=== PATIENT | female | born 1955 | race Caucasian/White ===

== ENCOUNTER 2018-03-03 14:36 | Inpatient (IN) ==
--- NOTE | 2018-03-03 14:58 | Emergency Department Note ---
ED Disposition Clinical Impression: Sinus bradycardia, Medication side effect, COPD (chronic obstructive pulmonary disease), Diabetes mellitus, Hypertension, COPD exacerbation Disposition: Still a Patient Condition on Discharge: Fair Referrals: Ricky Slaughter MD [Primary Care Provider] - - Critical Care Critical Care Time: No Attestation: On 03/03/18, the high probability of a clinically significant, sudden or life threatening deterioration of the following system(s) required my full and direct attention, intervention and personal management. The time I documented below is in addition to time spent performing reported procedures but includes the following listed in this critical care notation. Medical Decision Making - Ravinder Inquiry Pt receiving controlled substance: No Ravinder was queried for this patient: No Vital Signs: 03/03/18 14:54 03/03/18 14:55 03/03/18 15:33 Temperature 98.4 F Temperature Source Oral Pulse Rate [Left Radial] 41 L 39 L Respiratory Rate 26 H 24 Blood Pressure [Right Arm] 146/66 H 106/56 L Blood Pressure Mean [Right Arm] 92 72 Blood Pressure Source [Right Arm] Automatic Cuff Automatic Cuff Blood Pressure Position [Right Arm] Sitting Sitting 02 Sat by Pulse Oximetry 81 L 90 L 93 L Oxygen Delivery Method Room Air Nasal Cannula Nasal Cannula Oxygen Flow Rate (LPM) 5 5 - Lab Data Lab Results 03/03/18 14:55: Specimen Source Right radial, O2 % 42%, ABG pH 7.36, ABG pCO2 46.8 H, ABG pO2 63.3 L, ABG HCO3 25.9, ABG Total CO2 27.3 H, ABG O2 Saturation 92, ABG Base Excess 0.5, Sudhakar Test Acceptable 03/03/18 15:16: D-Dimer 101 03/03/18 15:24: WBC 10.8, RBC 4.79, Hgb 14.3, Hct 44.4, MCV 92.6, MCH 29.9, MCHC 32.3, RDW 14.3, Plt Count 227, MPV 7.4, Neut % (Auto) 78.1, Lymph % (Auto) 16.9, Nance % (Auto) 4.1, Eos % (Auto) 0.8, Baso % (Auto) 0.2, Neut # (Auto) 8.4 H, Lymph # (Auto) 1.8, Nance # (Auto) 0.4, Eos # (Auto) 0.1, Baso # (Auto) 0.0 03/03/18 15:24: Sodium 143, Potassium 3.8, Chloride 106, Carbon Dioxide 28, Anion Gap 12.8, BUN 15, Creatinine 1.17 H, Estimated Creat Clear 90, Estimated GFR 47 L, Est GFR ( Amer) 57 L, Glucose 189 H, Calcium 8.8, Total Bilirubin 0.2, AST 11 L, ALT 22, Alkaline Phosphatase 101, Troponin I < 0.02, Total Protein 8.0, Albumin 3.6, Globulin 4.4 H, Albumin/Globulin Ratio 0.8 L 03/03/18 15:24: Lactate 1.8 03/03/18 15:24: B-Natriuretic Peptide 103 H 03/03/18 15:24: Magnesium 2.0 Result diagrams: 03/03/18 15:24 03/03/18 15:24 Orders (Tests/Meds): ED MEDICATIONS Generic Name Dose Route Start Last Admin Trade Name Freq PRN Reason Stop Dose Admin Ceftriaxone Sodium 1 gm/ 50 mls @ 100 mls/hr 03/03/18 16:00 03/03/18 16:21 Sodium Chloride IV 03/17/18 15:59 100 mls/hr Q24H ALMA Administration Protocol Discontinued Medications Generic Name Dose Route Start Last Admin Trade Name Freq PRN Reason Stop Dose Admin Albuterol/Ipratropium 3 ml 03/03/18 15:46 Duoneb 3ml Neb IH 03/03/18 15:47 ONCE ONE Famotidine 20 mg 03/03/18 15:46 03/03/18 16:21 Pepcid 20mg/2ml Vial IV 03/03/18 15:47 20 mg ONCE ONE Administration Methylprednisolone Sodium Succinate 125 mg 03/03/18 15:46 03/03/18 16:21 Solu-Medrol 125mg/2ml Vial IV 03/03/18 15:47 125 mg ONCE ONE Administration ORDERS Category Date Time Status Chest XR -- portable [XR chest portable] Stat Exams 03/03/18 14:54 Taken Blood Culture Stat Micro 03/03/18 15:24 Ordered - Radiology Data #1 Image Reviewed: Yes I reviewed the patient's radiology image - ECG Data Tracing #1 40/min sinus bradycardia low voltage nonspecific ST and T wave changes no acute findings. ECG initial impression date: 03/03/18 ECG initial impression time: 15:05 Medical Decision Narrative: Patient came stable on 6 L nasal cannula started IV steroids antibiotics and erica nebs later on was able to diminish it to 4 L nasal cannula contacted Dr. Dr. Slaughter for admission. Resp/SOB HPI - General Stated Complaint: vomiting,congestion,SOA Time Seen by Provider: 03/03/18 14:55 Mode of Arrival: Ambulatory - History of Present Illness 62 years old white female smoker with history of COPD, hypertension, CVA and diabetes mellitus on Glucophage.. 3 days ago she developed upper respiratory tract infection sinus congestion headache and cough. She progressively got short of breath upon arrival to her son's she was found to be hypoxic and bradycardic. She was brought to the ED and her oxygen saturation was 84% and her heart rate was 48/min.. He denies having chest pain palpitations hemoptysis hematemesis coffee-ground emesis melanotic stool or bleeding per rectum. She denies having fever chills productive sputum dysuria hematuria or frequency. The patient had similar episode 2 years ago and was contributed to COPD exacerbation. I reviewed her medication and she is on beta-blockers calcium channel blockers and alpha blockers in addition to terazosin and diuretics. MD Complaint: shortness of breath Onset (ago): day(s) (Progressively for the last 3 days.) Severity: moderate Consistency/Duration: constant Relieving factors: oxygen, rest Exacerbating factors: lying flat, exertion Associated symptoms: cough, other (Nausea without vomiting. ) Treatment prior to arrival: other (Pulse ox by the son's girlfriend. ) - Related Data Home oxygen amount: none Home Medications Medication Instructions Recorded Confirmed Enalapril Maleate 10 mg PO BID 03/03/18 03/03/18 Fluoxetine HCl 20 mg PO DAILY 03/03/18 03/03/18 Furosemide [Lasix 40mg tab] 40 mg PO DAILY 03/03/18 03/03/18 Hydralazine HCl [Hydralazine HCl 25 mg PO BID 03/03/18 03/03/18 25mg Tablet] Metoprolol Tartrate [Lopressor 50 mg PO BID 03/03/18 03/03/18 50mg tablet] Potassium Chloride [Klor-Con 10mEq 10 meq PO DAILY 03/03/18 03/03/18 tab] Terazosin HCl 10 mg PO HS 03/03/18 03/03/18 Trazodone HCl 50 mg PO HS 03/03/18 03/03/18 cloNIDine HCl [cloNIDine 0.2mg 0.2 mg PO BID 03/03/18 03/03/18 Tablet] dilTIAZem HCl [Diltiazem 90mg 12Hr 90 mg PO BID 03/03/18 03/03/18 ER Cap] Allergies Allergy/AdvReac Type Severity Reaction Status Date / Time No Known Allergies Allergy Verified 03/03/18 15:29 [facility] History I have reviewed the patient's past medical history: Yes ROS Obtained: Yes All systems reviewed & no additional complaints Physical Exam - General General appearance: alert, in no apparent distress, obese - Head Head exam: atraumatic, normocephalic, normal inspection - Eye Eye exam: Present: normal appearance, PERRL, EOMI. Absent: scleral icterus, nystagmus - ENT ENT exam: Present: normal exam, normal oropharynx, mucous membranes moist, TM's normal bilaterally, normal external ear exam - Neck Neck exam: Present: normal inspection, full ROM, trachea midline, other (No JVD. ). Absent: tenderness, meningismus, lymphadenopathy - Chest Chest inspection: Present: normal inspection, symmetric chest wall rise. Absent: tenderness - Respiratory Respiratory exam: Present: normal lung sounds bilaterally. Absent: respiratory distress, wheezes - Cardiovascular Cardiovascular exam: Present: regular rate, bradycardia, normal heart sounds. Absent: JVD - Abdominal Exam Abdominal exam: Present: soft, normal bowel sounds. Absent: distention, tenderness, guarding, rebound, rigidity - External exam: Present: normal external exam - Extremities Exam Extremities exam: Present: normal inspection, full ROM, normal capillary refill. Absent: calf tenderness - Back Exam Back exam: Present: normal inspection. Absent: tenderness, CVA tenderness (R), CVA tenderness (L), paraspinal tenderness, vertebral tenderness - Neurological Exam Neurological exam: Present: alert, oriented X3, CN II-XII intact, motor sensory deficit, reflexes normal - Psychiatric Psychiatric exam: Present: normal affect, normal mood - Skin Skin exam: Present: warm, dry, intact, normal color - Lymphatic Lymphatic Findings: no adenopathy
[2018-03-03 15:33] LABS: Basophils % 0.2 % (0.1-2.0); Eosinophils # 0.1 K/mm3 (0.0-0.4); Eosinophils % 0.8 % (0.1-12.0); Hematocrit 44.4 % (37.0-47.0); Hemoglobin 14.3 g/dL (12.2-16.2); Lymphocytes # 1.8 K/mm3 (0.7-4.5); Lymphocytes % 16.9 % (10-50); Mean Corpuscular HGB Conc 32.3 g/dL (31.8-35.4); Mean Corpuscular Hemoglobin 29.9 pg (27.0-31.2); Mean Corpuscular Volume 92.6 fl (81-99); Mean Platelet Volume 7.4 fl (7.4-10.4); Monocytes # 0.4 K/mm3 (0.1-1.0); Monocytes % 4.1 % (1.7-9.3); Neutrophils # 8.4 K/mm3 (1.8-7.8); Neutrophils % 78.1 % (37.0-80.0); Platelet Count 227 K/mm3 (142-424); Red Blood Count 4.79 M/mm3 (4.20-5.40); Red Cell Distribution Width 14.3 % (11.5-17.5); White Blood Count 10.8 K/mm3 (4.8-10.8)
[2018-03-03 15:33] LABS: ABG Base Excess 0.5 mmol/L (-2.4-2.3); ABG HCO3 25.9 mmhg (22.0-26.0); ABG Oxygen Saturation 92 % (90-100); ABG PCO2 46.8 mmhg (35.0-45.0); ABG PH 7.36 mmol/L (7.35-7.45); ABG PO2 63.3 mmhg (80-100); ABG TCO2 27.3 mmhg (23-27)
[2018-03-03 15:36] LABS: Allen's Test Acceptable
[2018-03-03 15:47] LABS: Alanine Aminotransferase 22 U/L (12-78); Albumin Level 3.6 gm/dL (3.4-5.0); Albumin/Globulin Ratio 0.8 (1.1-1.8); Alkaline Phosphatase 101 U/L (46-116); Anion Gap 12.8 mEq/L (5-15); Aspartate Amino Transferase 11 U/L (15-37); Bilirubin,Total 0.2 mg/dL (0.2-1.0); Blood Urea Nitrogen 15 mg/dL (7-18); Calcium 8.8 mg/dL (8.5-10.1); Carbon Dioxide 28 mmol/L (21.0-32.0); Chloride 106 mmol/L (98-107); Globulin 4.4 gm/dl (1.3-3.2); Glucose 189 mg/dL (74-106); Potassium 3.8 mmoL/L (3.5-5.1); Sodium 143 mmol/L (136-145)
[2018-03-04 05:53] LABS: Basophils % 0.1 % (0.1-2.0); Eosinophils % 0.3 % (0.1-12.0); Hematocrit 43.5 % (37.0-47.0); Hemoglobin 13.7 g/dL (12.2-16.2); Lymphocytes # 0.8 K/mm3 (0.7-4.5); Lymphocytes % 12.4 % (10-50); Mean Corpuscular HGB Conc 31.6 g/dL (31.8-35.4); Mean Corpuscular Hemoglobin 29.6 pg (27.0-31.2); Mean Corpuscular Volume 93.7 fl (81-99); Mean Platelet Volume 7.6 fl (7.4-10.4); Monocytes # 0.1 K/mm3 (0.1-1.0); Monocytes % 1.8 % (1.7-9.3); Neutrophils # 5.2 K/mm3 (1.8-7.8); Neutrophils % 85.4 % (37.0-80.0); Platelet Count 232 K/mm3 (142-424); Red Blood Count 4.64 M/mm3 (4.20-5.40); Red Cell Distribution Width 14.2 % (11.5-17.5); White Blood Count 6.1 K/mm3 (4.8-10.8)
[2018-03-04 06:04] LABS: Anion Gap 12.3 mEq/L (5-15); Potassium 4.3 mmoL/L (3.5-5.1)
[2018-03-04 08:23] LABS: Lymphocytes % 10 % (10-50); Monocytes % 2 % (2-9); Neutrophils % 88 % (42-76); Total Cells Counted 100
--- NOTE | 2018-03-04 08:24 | Pharmacy Consult Notes ---
[facility] Pharmacy VTE Monitoring - Patient Demographics Admission date: 03/03/18 Report Date: 03/04/18 Time: 08:24 Allergies/Adverse Reactions: Patient Allergies No Known Allergies Allergy (Verified 03/03/18 15:29) Height: 1.68 m Weight: 114.844 kg Patient Problems: Current Active Problems Sinus bradycardia (Acute) Medication side effect (Acute) COPD (chronic obstructive pulmonary disease) (Acute) Diabetes mellitus (Acute) Hypertension (Acute) COPD exacerbation (Acute) - VTE Risk Labs: VTE Related Lab Results Hgb 13.7 g/dL (12.2-16.2) 03/04/18 05:28 Hct 43.5 % (37.0-47.0) 03/04/18 05:28 Plt Count 232 K/mm3 (142-424) 03/04/18 05:28 BUN 15 mg/dL (7-18) 03/04/18 05:28 Creatinine 1.31 mg/dL (0.55-1.02) H 03/04/18 05:28 Estimated Creat Clear 81 mL/min (50-200) 03/04/18 05:28 Was VTE Risk Assessment Performed: Yes VTE Risk Level: Very Low Risk - Prophylaxis VTE Prophylaxis Ordered?: Yes Types of VTE Prophylaxis: TEDS Knee High Location of Applied Device: Bilateral Lower Extremeties - VTE Diagnosis Confirmed Treatment or plan recommended: Continue Current Treatment
--- NOTE | 2018-03-04 09:36 | History & Physical Report ---
*Admission Date: 03/03/18 <Lindsay Dominguez 03/04/18 09:46> *Chief complaint: COPD exacerbation, Bradycardia <Lindsay Dominguez 03/04/18 09:46> *History of present illness: Further to above history, she states she started with vomiting and diarrhea yesterday and vomiting last night after admission to the floor but states her nausea is better and she was able to eat her breakfast this morning. SHe is not clear on her home meds and we are awaiting her son's arrival with her prescription bottles for clarification <Ricky Slaughter - 03/04/18 14:52> Ms. Fang is a 62yo WF with history of COPD, HTN, CVA, DM, and depression. She presented to [facility] ED yesterday after three days of progressive upper respiratory tract infection symptoms at home. Her son reportedly brought her to the ED where she was found to be hypoxic with O2 sat of 84% and bradycardic with heart rate of 48bpm. Her CXR was negative. She denies any chest pain or associated GI or symptoms. She had a similar episode two years ago which was contributed to COPD. At this time, she is sitting up on the side of the bed with family present. She denies any pain and notes that she is feeling better that she had. She reports tolerating breakfast well with good appetite. She continues with SOB with O2 in place per NC. <Lindsay Dominguez 03/04/18 09:46> [facility] History Medical History: Reports:: Chronic Obstructive Pulmonary Disease (COPD), Cerebrovascular Accident, Depression, Diabetes Mellitus Type 2, Hyperlipidemia, Hypertension <AlbertoLindsay 03/04/18 09:46> Other Surgeries: Yes: Appendectomy, Tubal Ligation <AlbertoLindsay 03/04/18 09:46> - *Social History Educational Level: Completed GED/General Educational Development <Lindsay Dominguez 03/04/18 09:46> Smoking Status: Current every day smoker <Lindsay Dominguez 03/04/18 09:46> Tobacco Type: cigarettes <AlbertoLindsay 03/04/18 09:46> # Packs/Day (cigarettes): 1 <Lindsay Dominguez 03/04/18 09:46> Alcohol Intake: never <Lindsay Dominguez 03/04/18 09:46> Occupational Status: disabled <Lindsay Dominguez 03/04/18 09:46> Housing: apartment <Lindsay Dominguez 03/04/18 09:46> Household Members: children <Lindsay Dominguez 03/04/18 09:46> - Psychiatric History Expresses thoughts of harming self/others: None <Lindsay Dominguez 03/04/18 09:46> Suicide Plan Description: No Plan <Lindsay Dominguez 03/04/18 09:46> *Family Hx:: Cancer, Diabetes, Heart Attack <Lindsay Dominguez 03/04/18 09:46> Review of Systems - Constitutional Reports fatigue, Reports fever(s), Reports headache(s), Reports weakness <Lindsay Dominguez 03/04/18 09:46> - ENT Reports headache(s), Reports nasal congestion, Reports post nasal drip, Reports sinus pressure, Reports sore throat, Reports dizziness <Lindsay Dominguez 03/04/18 09:46> - *Cardiovascular Reports shortness of breath, Reports lightheadedness, Reports shortness of breath when lying down, Denies chest pain <Lindsay Dominguez 03/04/18 09:46> - *Respiratory Reports chest congestion, Reports cough, Reports shortness of breath, Reports shortness of breath with activity <Lindsay Dominguez 03/04/18 09:46> - *Gastrointestinal Denies abdominal pain, Denies loose stools, Denies nausea, Denies vomiting <Lindsay Dominguez 03/04/18 09:46> - *Genitourinary Denies difficulty urinating <Lindsay Dominguez 03/04/18 09:46> - *Neurologic Reports dizziness, Reports weakness <Lindsay Dominguez 03/04/18 09:46> - Hematologic/Lymphatic Reports enlarged lymph nodes <Lindsay Dominguez 03/04/18 09:46> Meds Home Medications Medication Instructions Recorded Confirmed Type Enalapril Maleate 20 mg PO BID 03/03/18 03/03/18 History Fluoxetine HCl 20 mg PO DAILY 03/03/18 03/03/18 History Furosemide [Lasix 40mg tab] 40 mg PO DAILY 03/03/18 03/03/18 History Hydralazine HCl [Hydralazine HCl 25 mg PO BID 03/03/18 03/03/18 History 25mg Tablet] Metformin HCl 1,000 mg PO BID 03/03/18 03/03/18 History Metoprolol Tartrate [Lopressor 50 mg PO BID 03/03/18 03/03/18 History 50mg tablet] Potassium Chloride [Klor-Con 10mEq 10 meq PO DAILY 03/03/18 03/03/18 History tab] Terazosin HCl 10 mg PO HS 03/03/18 03/03/18 History Trazodone HCl 50 mg PO HS 03/03/18 03/03/18 History cloNIDine HCl [cloNIDine 0.2mg 0.2 mg PO BID 03/03/18 03/03/18 History Tablet] dilTIAZem HCl [Diltiazem 90mg 12Hr 90 mg PO BID 03/03/18 03/03/18 History ER Cap] <Ricky Slaughter - 03/04/18 14:52> Allergies Allergy/AdvReac Type Severity Reaction Status Date / Time No Known Allergies Allergy Verified 03/03/18 15:29 <Ricky Slaughter - 03/04/18 14:52> Exam Vital signs and Labs for Last 24 Hours: Temp Pulse Resp BP Pulse Ox 98.2 F 72 20 185/91 H 93 L 03/04/18 08:00 03/04/18 13:48 03/04/18 08:00 03/04/18 08:00 03/04/18 13:48 Laboratory Results - last 24 hr 03/03/18 14:55: Specimen Source Right radial, O2 % 42%, ABG pH 7.36, ABG pCO2 46.8 H, ABG pO2 63.3 L, ABG HCO3 25.9, ABG Total CO2 27.3 H, ABG O2 Saturation 92, ABG Base Excess 0.5, Sudhakar Test Acceptable 03/03/18 15:16: D-Dimer 101 03/03/18 15:24: WBC 10.8, RBC 4.79, Hgb 14.3, Hct 44.4, MCV 92.6, MCH 29.9, MCHC 32.3, RDW 14.3, Plt Count 227, MPV 7.4, Neut % (Auto) 78.1, Lymph % (Auto) 16.9, Mccormick % (Auto) 4.1, Eos % (Auto) 0.8, Baso % (Auto) 0.2, Neut # (Auto) 8.4 H, Lymph # (Auto) 1.8, Mccormick # (Auto) 0.4, Eos # (Auto) 0.1, Baso # (Auto) 0.0 03/03/18 15:24: Sodium 143, Potassium 3.8, Chloride 106, Carbon Dioxide 28, Anion Gap 12.8, BUN 15, Creatinine 1.17 H, Estimated Creat Clear 90, Estimated GFR 47 L, Est GFR ( Amer) 57 L, Glucose 189 H, Calcium 8.8, Total Bilirubin 0.2, AST 11 L, ALT 22, Alkaline Phosphatase 101, Troponin I < 0.02, Total Protein 8.0, Albumin 3.6, Globulin 4.4 H, Albumin/Globulin Ratio 0.8 L 03/03/18 15:24: Lactate 1.8 03/03/18 15:24: B-Natriuretic Peptide 103 H 03/03/18 15:24: Magnesium 2.0 03/03/18 19:35: Troponin I < 0.02 03/04/18 01:35: Troponin I < 0.02 03/04/18 05:28: WBC 6.1 D, RBC 4.64, Hgb 13.7, Hct 43.5, MCV 93.7, MCH 29.6, MCHC 31.6 L, RDW 14.2, Plt Count 232, MPV 7.6, Neut % (Auto) 85.4 H, Lymph % (Auto) 12.4, Mccormick % (Auto) 1.8, Eos % (Auto) 0.3, Baso % (Auto) 0.1, Neut # (Auto) 5.2, Lymph # (Auto) 0.8, Mccormick # (Auto) 0.1, Eos # (Auto) 0.0, Baso # (Auto) 0.0, Total Counted 100, Neutrophils % (Manual) 88 H, Lymphocytes % (Manual) 10, Monocytes % (Manual) 2, Platelet Estimate Normal 03/04/18 05:28: Sodium 142, Potassium 4.3, Chloride 106, Carbon Dioxide 28, Anion Gap 12.3, BUN 15, Creatinine 1.31 H, Estimated Creat Clear 81, Estimated GFR 41 L, Est GFR ( Amer) 50 L, Glucose 258 H D, Calcium 9.0 <Ricky Slaughter - 03/04/18 14:52> Temp Pulse Resp BP Pulse Ox 98.2 F 80 20 185/91 H 92 L 03/04/18 08:00 03/04/18 08:00 03/04/18 08:00 03/04/18 08:00 03/04/18 08:00 Laboratory Results - last 24 hr 03/03/18 14:55: Specimen Source Right radial, O2 % 42%, ABG pH 7.36, ABG pCO2 46.8 H, ABG pO2 63.3 L, ABG HCO3 25.9, ABG Total CO2 27.3 H, ABG O2 Saturation 92, ABG Base Excess 0.5, Sudhakar Test Acceptable 03/03/18 15:16: D-Dimer 101 03/03/18 15:24: WBC 10.8, RBC 4.79, Hgb 14.3, Hct 44.4, MCV 92.6, MCH 29.9, MCHC 32.3, RDW 14.3, Plt Count 227, MPV 7.4, Neut % (Auto) 78.1, Lymph % (Auto) 16.9, Mccormick % (Auto) 4.1, Eos % (Auto) 0.8, Baso % (Auto) 0.2, Neut # (Auto) 8.4 H, Lymph # (Auto) 1.8, Mccormick # (Auto) 0.4, Eos # (Auto) 0.1, Baso # (Auto) 0.0 03/03/18 15:24: Sodium 143, Potassium 3.8, Chloride 106, Carbon Dioxide 28, Anion Gap 12.8, BUN 15, Creatinine 1.17 H, Estimated Creat Clear 90, Estimated GFR 47 L, Est GFR ( Amer) 57 L, Glucose 189 H, Calcium 8.8, Total Bilirubin 0.2, AST 11 L, ALT 22, Alkaline Phosphatase 101, Troponin I < 0.02, Total Protein 8.0, Albumin 3.6, Globulin 4.4 H, Albumin/Globulin Ratio 0.8 L 03/03/18 15:24: Lactate 1.8 03/03/18 15:24: B-Natriuretic Peptide 103 H 03/03/18 15:24: Magnesium 2.0 03/03/18 19:35: Troponin I < 0.02 03/04/18 01:35: Troponin I < 0.02 03/04/18 05:28: WBC 6.1 D, RBC 4.64, Hgb 13.7, Hct 43.5, MCV 93.7, MCH 29.6, MCHC 31.6 L, RDW 14.2, Plt Count 232, MPV 7.6, Neut % (Auto) 85.4 H, Lymph % (Auto) 12.4, Mccormick % (Auto) 1.8, Eos % (Auto) 0.3, Baso % (Auto) 0.1, Neut # (Auto) 5.2, Lymph # (Auto) 0.8, Mccormick # (Auto) 0.1, Eos # (Auto) 0.0, Baso # (Auto) 0.0, Total Counted 100, Neutrophils % (Manual) 88 H, Lymphocytes % (Manual) 10, Monocytes % (Manual) 2, Platelet Estimate Normal 03/04/18 05:28: Sodium 142, Potassium 4.3, Chloride 106, Carbon Dioxide 28, Anion Gap 12.3, BUN 15, Creatinine 1.31 H, Estimated Creat Clear 81, Estimated GFR 41 L, Est GFR ( Amer) 50 L, Glucose 258 H D, Calcium 9.0 <Lindsay Dominguez - 03/04/18 09:46> I & O for Last 24 hours: Intake & Output 03/02/18 03/03/18 03/04/18 03/05/18 11:59 11:59 11:59 11:59 Intake Total 480 / 480 Balance 480 / 480 Weight 253 lb 3.003 oz <Ricky Slaughter - 03/04/18 14:52> Intake & Output 03/01/18 03/02/18 03/03/18 03/04/18 11:59 11:59 11:59 11:59 Intake Total 480 / 480 Balance 480 / 480 Weight 253 lb 3 oz <Lindsay Dominguez - 03/04/18 09:46> Microbiology Reports for the Last 24 Hours: Microbiology 03/03/18 16:40 Sputum - Expectorated Sputum Gram Stain - Final 03/03/18 16:40 Sputum - Expectorated Sputum Sputum Culture - Preliminary <Ricky Slaughter - 03/04/18 14:52> Microbiology 03/03/18 16:40 Sputum - Expectorated Sputum Gram Stain - Final 03/03/18 16:40 Sputum - Expectorated Sputum Sputum Culture - Preliminary <Lindsay Dominguez 03/04/18 09:46> - Constitutional no acute distress [facility] 03/04/18 09:46> - *Routine HEENT Exam Head: Present: normocephalic, atraumatic <[facility] 03/04/18 09:46> Eye: Present: EOMI, PERRL, normal accommodation <[facility] 03/04/18 09:46> ENT: Present: mucous membranes moist, nares patent <[facility] 03/04/18 09:46> - *Routine Neck Exam Present: supple, full ROM <[facility] 03/04/18 09:46> Comments: bilateral mildly ttp anterior cervical LAD <[facility] 03/04/18 09:46> - *Routine Respiratory Exam Comments: mildly dyspneic; generally diminished with wheezes throughout <[facility] 03/04/18 09:46> - *Routine Cardiovascular Exam Present: RRR <[facility] 03/04/18 09:46> - *Routine Abdominal Exam Present: soft, normoactive bowel sounds. Absent: tenderness, distended, rebound, guarding, rigid, organomegaly <[facility] 03/04/18 09:46> - *Routine Extremities Exam Present: full ROM, pulses intact. Absent: calf tenderness <[facility] 03/04/18 09:46> Comments: trace BLE edema <[facility] 03/04/18 09:46> - *Routine Neurological Exam Present: alert, oriented X3, moving all extremities, normal speech <[facility] 03/04/18 09:46> Assessment and Plan (1) COPD exacerbation Current visit: Yes Status: Acute Category: Medical Code(s): J44.1 - Chronic obstructive pulmonary disease with (acute) exacerbation (2) Diabetes mellitus Current visit: Yes Status: Acute Category: Medical Code(s): E11.9 - Type 2 diabetes mellitus without complications (3) Hypertension Current visit: Yes Status: Acute Category: Medical Code(s): I10 - Essential (primary) hypertension (4) Sinus bradycardia Current visit: Yes Status: Acute Category: Medical Code(s): R00.1 - Bradycardia, unspecified <Lindsay Dominguez - 03/04/18 09:29> (1) COPD exacerbation Current visit: Yes Status: Acute Category: Medical Code(s): J44.1 - Chronic obstructive pulmonary disease with (acute) exacerbation (2) Hypoxemia Current visit: Yes Status: Acute Category: Medical Code(s): R09.02 - Hypoxemia (3) AGE (acute gastroenteritis) Current visit: Yes Status: Acute Category: Medical Code(s): K52.9 - Noninfective gastroenteritis and colitis, unspecified (4) Acute renal insufficiency Current visit: Yes Status: Acute Category: Medical Code(s): N28.9 - Disorder of kidney and ureter, unspecified (5) Diabetes mellitus Current visit: Yes Status: Acute Category: Medical Code(s): E11.9 - Type 2 diabetes mellitus without complications (6) Hypertension Current visit: Yes Status: Acute Category: Medical Code(s): I10 - Essential (primary) hypertension (7) Sinus bradycardia Current visit: Yes Status: Acute Category: Medical Code(s): R00.1 - Bradycardia, unspecified (8) History of intracerebral hemorrhage without residual deficit Current visit: Yes Status: Acute Category: Medical Code(s): Z86.79 - Personal history of other diseases of the circulatory system (9) Hyperlipidemia Current visit: Yes Status: Acute Category: Medical Code(s): E78.5 - Hyperlipidemia, unspecified (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 Has been able to wean from 6 liters O2 down to 2.5 liters. As noted her AGE is improved. Likely her acute renal insufficiency is on the basis of acute dehydration as her GFR a month ago was 53. Her HR has increase this AM off the beta nikolas and will continue to hold but her BP is elevated and will need to adjust her other meds for better control. Plan to repeat CXR today to r/o pneumonia. Additional workup and treatment will be as indicated by her hospital course. <Ricky Slaughter - 03/04/18 14:52> further per Dr. Slaughter <Lindsay Dominguez - 03/04/18 09:46>
[2018-03-05 06:01] LABS: Basophils % 0.2 % (0.1-2.0); Eosinophils % 0.1 % (0.1-12.0); Hematocrit 41.6 % (37.0-47.0); Lymphocytes % 8.4 % (10-50); Mean Corpuscular HGB Conc 31.3 g/dL (31.8-35.4); Mean Corpuscular Hemoglobin 28.6 pg (27.0-31.2); Mean Corpuscular Volume 91.2 fl (81-99); Mean Platelet Volume 7.3 fl (7.4-10.4); Monocytes # 0.3 K/mm3 (0.1-1.0); Monocytes % 2.5 % (1.7-9.3); Neutrophils # 10.4 K/mm3 (1.8-7.8); Neutrophils % 88.8 % (37.0-80.0); Platelet Count 242 K/mm3 (142-424); Red Blood Count 4.56 M/mm3 (4.20-5.40); Red Cell Distribution Width 14.3 % (11.5-17.5); White Blood Count 11.7 K/mm3 (4.8-10.8)
[2018-03-05 06:06] LABS: Anion Gap 12.4 mEq/L (5-15); Calcium 8.7 mg/dL (8.5-10.1); Potassium 4.4 mmoL/L (3.5-5.1)
[2018-03-05 06:13] LABS: Hypochromasia 1+; Lymphocytes % 11 % (10-50); Monocytes % 1 % (2-9); Neutrophils % 83 % (42-76); Rouleaux 1+; Total Cells Counted 100
--- NOTE | 2018-03-05 09:57 | Progress Note ---
Internal Medicine - PN: Subj *Date: 03/05/18 *Time: 09:51 Interval history: She rested better last night. She feels she is breathing better. Less congested. No complaints of chest pain. Vomiting and diarrhea have resolved. Appetite is normal. She had a normal bowel movement yesterday. She expresses a desire to quit smoking. Exam Vital signs and Labs for Last 24 Hours: Temp Pulse Resp BP Pulse Ox 98.2 F 72 18 170/100 H 91 L 03/05/18 07:59 03/05/18 07:59 03/05/18 07:59 03/05/18 07:59 03/05/18 08:00 Laboratory Results - last 24 hr 03/04/18 21:15: POC Glucose 363 H* 03/05/18 05:40: WBC 11.7 H D, RBC 4.56, Hgb 13.0, Hct 41.6, MCV 91.2, MCH 28.6, MCHC 31.3 L, RDW 14.3, Plt Count 242, MPV 7.3 L, Neut % (Auto) 88.8 H, Lymph % (Auto) 8.4 L, [place] % (Auto) 2.5, Eos % (Auto) 0.1, Baso % (Auto) 0.2, Neut # (Auto) 10.4 H, Lymph # (Auto) 1.0, [place] # (Auto) 0.3, Eos # (Auto) 0.0, Baso # (Auto) 0.0, Total Counted 100, Neutrophils % (Manual) 83 H, Band Neutrophils % 5.0, Lymphocytes % (Manual) 11, Monocytes % (Manual) 1 L, Platelet Estimate Normal, Hypochromasia 1+, Rouleaux 1+ 03/05/18 05:40: Sodium 142, Potassium 4.4, Chloride 105, Carbon Dioxide 29, Anion Gap 12.4, BUN 24 H D, Creatinine 1.15 H, Estimated Creat Clear 92, Estimated GFR 48 L, Est GFR ( Amer) 58 L, Glucose 227 H, Calcium 8.7 03/05/18 06:15: POC Glucose 214 H I & O for Last 24 hours: Intake & Output 03/02/18 03/03/18 03/04/18 03/05/18 11:59 11:59 11:59 11:59 Intake Total 480 / 480 1500 / 1500 Output Total 600 / 600 Balance 480 / 480 900 / 900 Weight 253 lb 3.003 oz Microbiology Reports for the Last 24 Hours: Microbiology 03/03/18 16:40 Sputum - Expectorated Sputum Gram Stain - Final 03/03/18 16:40 Sputum - Expectorated Sputum Sputum Culture - Preliminary Gram Positive Cocci Narrative: She is sitting up in the chair. No respiratory distress. Color is normal. Mild nasal congestion. Sinuses nontender. Lungs are clear to auscultation. Heart is distant but regular with no murmurs. Extremities no edema. Assessment and Plan (1) COPD exacerbation Current visit: Yes Status: Acute Category: Medical Code(s): J44.1 - Chronic obstructive pulmonary disease with (acute) exacerbation (2) Hypoxemia Current visit: Yes Status: Acute Category: Medical Code(s): R09.02 - Hypoxemia (3) AGE (acute gastroenteritis) Current visit: Yes Status: Acute Category: Medical Code(s): K52.9 - Noninfective gastroenteritis and colitis, unspecified (4) Acute renal insufficiency Current visit: Yes Status: Acute Category: Medical Code(s): N28.9 - Disorder of kidney and ureter, unspecified (5) Diabetes mellitus Current visit: Yes Status: Acute Category: Medical Code(s): E11.9 - Type 2 diabetes mellitus without complications (6) Hypertension Current visit: Yes Status: Acute Category: Medical Code(s): I10 - Essential (primary) hypertension (7) Sinus bradycardia Current visit: Yes Status: Acute Category: Medical Code(s): R00.1 - Bradycardia, unspecified (8) History of intracerebral hemorrhage without residual deficit Current visit: Yes Status: Acute Category: Medical Code(s): Z86.79 - Personal history of other diseases of the circulatory system (9) Hyperlipidemia Current visit: Yes Status: Acute Category: Medical Code(s): E78.5 - Hyperlipidemia, unspecified (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 Oxygen has been weaned to 1 L per nasal cannula and she is tolerating this well. We will try to wean to room air today. Blood pressure remains elevated. We will continue to adjust her medication. She will be started on nicotine patch
[2018-03-06 07:45] LABS: Basophils % 0.1 % (0.1-2.0); Eosinophils % 0.1 % (0.1-12.0); Hematocrit 44.6 % (37.0-47.0); Hemoglobin 14.6 g/dL (12.2-16.2); Lymphocytes # 1.3 K/mm3 (0.7-4.5); Lymphocytes % 9.1 % (10-50); Mean Corpuscular HGB Conc 32.7 g/dL (31.8-35.4); Mean Corpuscular Hemoglobin 29.8 pg (27.0-31.2); Mean Corpuscular Volume 91.1 fl (81-99); Mean Platelet Volume 7.5 fl (7.4-10.4); Monocytes # 0.5 K/mm3 (0.1-1.0); Monocytes % 3.9 % (1.7-9.3); Neutrophils # 12.2 K/mm3 (1.8-7.8); Neutrophils % 86.7 % (37.0-80.0); Platelet Count 264 K/mm3 (142-424); Red Cell Distribution Width 14.3 % (11.5-17.5)
[2018-03-06 07:47] LABS: Calcium 9.1 mg/dL (8.5-10.1)
[2018-03-06 08:12] LABS: Lymphocytes % 11 % (10-50); Monocytes % 1 % (2-9); Neutrophils % 86 % (42-76); RBC Morphology Normal; Total Cells Counted 100
--- NOTE | 2018-03-06 12:28 | Progress Note ---
Internal Medicine - PN: Subj *Date: 03/06/18 *Time: 12:25 Interval history: She rested fairly well last night. She was able to wean to room air yesterday with sats staying in low 90's. She is comfortable at rest but still dyspneic with exertion. Minimal cough. No N,V, or D. Eating well. She is tolerating the Nicotine patch Exam Vital signs and Labs for Last 24 Hours: Temp Pulse Resp BP Pulse Ox 97.7 F 80 220 H 152/87 H 93 L 03/06/18 08:00 03/06/18 11:48 03/06/18 08:00 03/06/18 08:00 03/06/18 08:00 Laboratory Results - last 24 hr 03/05/18 16:44: POC Glucose 361 H* 03/05/18 20:14: POC Glucose 348 H* 03/06/18 05:27: POC Glucose 255 H 03/06/18 06:25: WBC 14.0 H, RBC 4.90, Hgb 14.6, Hct 44.6, MCV 91.1, MCH 29.8, MCHC 32.7, RDW 14.3, Plt Count 264, MPV 7.5, Neut % (Auto) 86.7 H, Lymph % (Auto) 9.1 L, [place] % (Auto) 3.9, Eos % (Auto) 0.1, Baso % (Auto) 0.1, Neut # (Auto) 12.2 H, Lymph # (Auto) 1.3, [place] # (Auto) 0.5, Eos # (Auto) 0.0, Baso # (Auto) 0.0, Total Counted 100, Neutrophils % (Manual) 86 H, Lymphocytes % (Manual) 11, Atypical Lymphs % 2.0, Monocytes % (Manual) 1 L, Platelet Estimate Normal, RBC Morphology Normal 03/06/18 06:25: Sodium 141, Potassium 4.0, Chloride 101, Carbon Dioxide 31, Anion Gap 13.0, BUN 26 H, Creatinine 1.10 H, Estimated Creat Clear 96, Estimated GFR 50 L, Est GFR ( Amer) 61, Glucose 243 H, Calcium 9.1 03/06/18 11:01: POC Glucose 283 H I & O for Last 24 hours: Intake & Output 11/23/18 03/05/18 03/06/18 03/07/18 11:59 11:59 11:59 11:59 Intake Total 480 / 480 1500 / 1500 1200 / 1200 Output Total 600 / 600 Balance 480 / 480 900 / 900 1200 / 1200 Weight 253 lb 3.003 oz Microbiology Reports for the Last 24 Hours: Microbiology 03/03/18 16:40 Sputum - Expectorated Sputum Gram Stain - Final 03/03/18 16:40 Sputum - Expectorated Sputum Sputum Culture - Final Staphylococcus aureus 03/03/18 15:24 Blood Blood Culture - Preliminary NO GROWTH AFTER 48 HOURS 03/03/18 15:24 Blood Blood Culture - Preliminary NO GROWTH AFTER 48 HOURS - Constitutional Comments: sitting up in chair with no resp distress. - *Routine HEENT Exam Comments: mild nasal congestion - *Routine Respiratory Exam Comments: few scattered wheezes - *Routine Cardiovascular Exam Present: RRR - *Routine Extremities Exam Absent: edema Assessment and Plan (1) COPD exacerbation Current visit: Yes Status: Acute Category: Medical Code(s): J44.1 - Chronic obstructive pulmonary disease with (acute) exacerbation (2) Hypoxemia Current visit: Yes Status: Acute Category: Medical Code(s): R09.02 - Hypoxemia (3) AGE (acute gastroenteritis) Current visit: Yes Status: Acute Category: Medical Code(s): K52.9 - Noninfective gastroenteritis and colitis, unspecified (4) Acute renal insufficiency Current visit: Yes Status: Acute Category: Medical Code(s): N28.9 - Disorder of kidney and ureter, unspecified (5) Diabetes mellitus Current visit: Yes Status: Acute Category: Medical Code(s): E11.9 - Type 2 diabetes mellitus without complications (6) Hypertension Current visit: Yes Status: Acute Category: Medical Code(s): I10 - Essential (primary) hypertension (7) Sinus bradycardia Current visit: Yes Status: Acute Category: Medical Code(s): R00.1 - Bradycardia, unspecified (8) History of intracerebral hemorrhage without residual deficit Current visit: Yes Status: Acute Category: Medical Code(s): Z86.79 - Perso nal history of other diseases of the circulatory system (9) Hyperlipidemia Current visit: Yes Status: Acute Category: Medical Code(s): E78.5 - Hyperlipidemia, unspecified (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 She plans to stay with her sister for a few days. She still wants to quit smoking and will be continued on Nicotine patches. See discharge med lists for change in blood pressure meds.
--- NOTE | 2018-03-07 21:42 | Discharge Summary ---
General - General Admission date:: 03/03/18 <Ricky Slaughter - 03/15/18 08:14> 03/03/18 <ClovisElizabet - 03/07/18 21:42> Discharge date: 03/06/18 <YeisonFrench smarta - 03/07/18 21:42> HPI HPI: Ms. Fang is a 62yo WF with history of COPD, HTN, CVA, DM, and depression. She presented to [facility] ED yesterday after three days of progressive upper respiratory tract infection symptoms at home. Her son reportedly brought her to the ED where she was found to be hypoxic with O2 sat of 84% and bradycardic with heart rate of 48bpm. Her CXR was negative. She denies any chest pain or associated GI or symptoms. She had a similar episode two years ago which was contributed to COPD. At this time, she is sitting up on the side of the bed with family present. She denies any pain and notes that she is feeling better that she had. She reports tolerating breakfast well with good appetite. She continues with SOB with O2 in place per [place]. Further to above history, she states she started with vomiting and diarrhea yesterday and vomiting last night after admission to the floor but states her nausea is better and she was able to eat her breakfast this morning. SHe is not clear on her home meds and we are awaiting her son's arrival with her prescription bottles for clarification <Elizabet Brannon - 03/07/18 21:42> Hospital Course Hospital Course: She was able to wean from 6 liters O2 down to 2.5 liters. Likely her acute renal insufficiency was on the basis of dehydration as her GFR a month ago was 53. Her vomiting and diarrhea resolved. She expressed a desire to quit smoking and was started on a nicotine patch. Her BP medication was adjusted. She was able to be weaned to room air and was comfortable at rest but still dyspneic with exertion. She was eating well and tolerating the Nicotine patch. She was stable to discharge home. She planned to stay with her sister for a few days. She still wanted to quit smoking and will be continued on Nicotine patches. <YeisonElizabet smart - 03/07/18 21:42> Objective Vital signs: Temp Pulse Resp BP Pulse Ox 97.7 F 80 220 H 152/87 H 93 L 03/06/18 08:00 03/06/18 11:48 03/06/18 08:00 03/06/18 08:00 03/06/18 08:00 <Ricky Slaughter - 03/15/18 08:14> Temp Pulse Resp BP Pulse Ox 97.7 F 80 220 H 152/87 H 93 L 03/06/18 08:00 03/06/18 11:48 03/06/18 08:00 03/06/18 08:00 03/06/18 08:00 <Elizabet Brannon - 03/07/18 21:42> Narrative: - Constitutional no acute distress - *Routine HEENT Exam Head: Present: normocephalic, atraumatic Eye: Present: EOMI, PERRL, normal accommodation ENT: Present: mucous membranes moist, nares patent - *Routine Neck Exam Present: supple, full ROM Comments: bilateral mildly ttp anterior cervical LAD - *Routine Respiratory Exam Comments: mildly dyspneic; generally diminished with wheezes throughout - *Routine Cardiovascular Exam Present: RRR - *Routine Abdominal Exam Present: soft, normoactive bowel sounds. Absent: tenderness, distended, rebound, guarding, rigid, organomegaly - *Routine Extremities Exam Present: full ROM, pulses intact. Absent: calf tenderness Comments: trace BLE edema - *Routine Neurological Exam Present: alert, oriented X3, moving all extremities, normal speech <Elizabet Brannon - 03/07/18 21:42> Results Labs on day of discharge: Preliminary micro results at discharge 03/03/18 15:24 Blood Culture - Preliminary Blood NO GROWTH AFTER 48 HOURS 03/03/18 15:24 Blood Culture - Preliminary Blood NO GROWTH AFTER 48 HOURS <Elizabet Brannon - 03/07/18 21:42> DS: Diagnosis - Discharge Diagnosis (1) COPD exacerbation Status: Acute (2) Hypoxemia Status: Acute (3) AGE (acute gastroenteritis) Status: Acute (4) Acute renal insufficiency Status: Acute (5) Diabetes mellitus Status: Acute (6) Hypertension Status: Acute (7) Sinus bradycardia Status: Acute (8) History of intracerebral hemorrhage without residual deficit Status: Acute (9) Hyperlipidemia Status: Acute (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 Status: Acute (11) Tobacco abuse disorder Status: Acute <Elizabet Brannon - 03/07/18 21:34> (1) COPD exacerbation Status: Acute (2) Hypoxemia Status: Acute (3) AGE (acute gastroenteritis) Status: Acute (4) Acute renal insufficiency Status: Acute (5) Diabetes mellitus Status: Acute (6) Hypertension Status: Acute (7) Sinus bradycardia Status: Acute (8) History of intracerebral hemorrhage without residual deficit Status: Acute (9) Hyperlipidemia Status: Acute (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 Status: Acute (11) Tobacco abuse disorder Status: Acute <Ricky Slaughter - 03/15/18 08:14> Discharge Plan - Patient Discharge Instructions ACTIVITY: Continue current activity <Elizabet Brannon - 03/07/18 21:42> DIET: continue same diet <Elizabet Brannon - 03/07/18 21:42> Patient Instructions: High Blood Pressure, DI for Chronic Obstructive Pulmonary Disease <Ricky Slaughter - 03/15/18 08:14> Forms: <Ricky Slaughter - 03/15/18 08:14> - Follow up Plan Follow up with: Ricky Slaughter MD [Primary Care Provider] - 03/10/18 <Ricky Slaughter - 03/15/18 08:14> Disposition: Home, Self-Care <Ricky Slaughter - 03/15/18 08:14> Home Medications: Home Medications Medication Instructions Recorded Confirmed Type RX: Enalapril Maleate 20 mg PO BID 03/03/18 03/03/18 History RX: Fluoxetine HCl 20 mg PO DAILY 03/03/18 03/03/18 History RX: Furosemide [Lasix 40mg tablet] 40 mg PO DAILY 03/03/18 03/03/18 History RX: Metformin HCl 1,000 mg PO BID 03/03/18 03/03/18 History RX: Potassium Chloride [Klor-Con 10 meq PO DAILY 03/03/18 03/03/18 History 10mEq tab] RX: Terazosin HCl 10 mg PO HS 03/03/18 03/03/18 History RX: Trazodone HCl 50 mg PO HS 03/03/18 03/03/18 History RX: dilTIAZem HCl [Diltiazem 90mg 90 mg PO BID 03/03/18 03/03/18 History 12Hr ER Cap] RX: Allopurinol [Allopurinol 300mg 300 mg PO DAILY 03/04/18 03/04/18 History tablet] <Ricky Slaughter - 03/15/18 08:14> Prescriptions/Medication Reconciliation: New RX: cefUROXime axetil [Ceftin 500mg Tab (GEQ)] 500 mg PO BID #14 tab RX: cloNIDine HCl [cloNIDine 0.2mg Tablet] 0.2 mg PO TID #90 tablet RX: Ipratropium/Albuterol Sulfate [Duoneb 3mL neb] 3 ml IH QID #120 ampul.neb methylPREDNISolone [Medrol] 4 mg PO DIRECTED #1 tab.ds.pk RX: Hydralazine HCl 50 mg PO TID #90 tablet RX: Nicotine [Nicoderm 21mg/24hr patch] 21 mg TD DAILY #30 patch.td24 Continue RX: Furosemide [Lasix 40mg tablet] 40 mg PO DAILY RX: Terazosin HCl 10 mg PO HS RX: Fluoxetine HCl 20 mg PO DAILY RX: Enalapril Maleate 20 mg PO BID RX: dilTIAZem HCl [Diltiazem 90mg 12Hr ER Cap] 90 mg PO BID RX: Potassium Chloride [Klor-Con 10mEq tab] 10 meq PO DAILY RX: Trazodone HCl 50 mg PO HS RX: Metformin HCl 1,000 mg PO BID RX: Allopurinol [Allopurinol 300mg tablet] 300 mg PO DAILY Discontinued RX: Hydralazine HCl [Hydralazine HCl 25mg Tablet] 25 mg PO BID RX: cloNIDine HCl [cloNIDine 0.2mg Tablet] 0.2 mg PO BID Metoprolol Tartrate [Lopressor 50mg tablet] 50 mg PO BID <Ricky Slaughter - 03/15/18 08:14> - Additional Information Additional Information: Concur with plan for discharge as outlined above. <Ricky Slaughter - 03/15/18 08:14>
== END 2018-03-06 13:55 | disposition home or self-care (01) ==
LOC: ER 14:36 → 2ND 16:32
PROVIDERS: ADMIT Family Medicine; ATTEND Family Medicine

== ENCOUNTER 2020-09-17 15:22 | Inpatient (IN) | payer MEDICARE, SELFPAY ==
[2020-09-17] VITALS (26 sets, daily range): BP systolic 90–152; BP diastolic 30–72; PULSE 33–67; RESP 13–18; TEMP -8.8–36.8; O2SAT 93–98; BMI 38.5
--- NOTE | 2020-09-17 15:22 | ECG_ITS ---
APPROVED REPORT Exam: Resting ECG HR:40 bpm ECG Measurements Heart Rate 40 AXES QRSd 92 QRS 46 QT 496 T 70 QTc 404 Conclusion Junctional bradycardia Low voltage QRS Abnormal ECG Electronically signed by : Carlitos Fonseca, 09/17/2020 21:57:58
--- NOTE | 2020-09-17 15:33 | XR_ITS ---
PROCEDURE: XR CHEST PORTABLE CLINICAL HISTORY: syncope COMPARISON: CR CXR1VP XR chest portable from 03/03/2018 CR CXR2V XR chest 2V from 03/04/2018 FINDINGS: The cardiomediastinal silhouette and pulmonary vascularity are within normal limits. The lungs are clear without infiltrates, suspicious nodules, or pleural effusions. No acute bony abnormalities. IMPRESSION: No acute findings. Dictated by: Sudhakar Flood MD 09/17/2020 16:10 Sudhakar Flood MD in OV 09/17/2020 16:10
--- NOTE | 2020-09-17 15:36 | HMH.EDGENADL ---
ED Disposition Clinical Impression: Symptomatic bradycardia, Drug toxicity Disposition: Admitted As Inpatient Condition on Discharge: Serious Referrals: Ricky Slaughter MD [Primary Care Provider] - Time of Disposition: 18:26 - Critical Care Critical Care Time: No Attestation: On , the high probability of a clinically significant, sudden or life threatening deterioration of the following system(s) required my full and direct attention, intervention and personal management. The time I documented below is in addition to time spent performing reported procedures but includes the following listed in this critical care notation. Medical Decision Making - Medical Records Medical records reviewed: Yes: I reviewed the patient's medical records. - Ravinder Inquiry Pt receiving controlled substance: No Vital Signs: 09/17/20 15:28 09/17/20 15:33 09/17/20 15:46 Temperature 98.0 F Temperature Source Oral Pulse Rate 39 L 40 L Pulse Rate [Apical] 41 L Respiratory Rate 18 18 18 Blood Pressure 112/44 L 123/48 L Blood Pressure [Left Arm] 152/50 H Blood Pressure Mean Blood Pressure Mean [Left Arm] 84 Blood Pressure Source Blood Pressure Source [Left Arm] Automatic Cuff Blood Pressure Position Blood Pressure Position [Left Arm] Sitting 02 Sat by Pulse Oximetry 97 97 95 Oxygen Delivery Method Nasal Cannula Nasal Cannula Nasal Cannula Oxygen Flow Rate (LPM) 3 2 2 09/17/20 16:02 09/17/20 16:07 09/17/20 16:16 Temperature Temperature Source Pulse Rate 38 L 36 L 34 L Pulse Rate [Apical] Respiratory Rate 18 18 Blood Pressure 95/70 L 107/43 L 91/30 L Blood Pressure [Left Arm] Blood Pressure Mean Blood Pressure Mean [Left Arm] Blood Pressure Source Automatic Cuff Blood Pressure Source [Left Arm] Blood Pressure Position Sitting Blood Pressure Position [Left Arm] 02 Sat by Pulse Oximetry 97 97 97 Oxygen Delivery Method Nasal Cannula Nasal Cannula Nasal Cannula Oxygen Flow Rate (LPM) 2 2 2 09/17/20 16:22 09/17/20 16:31 09/17/20 16:32 Temperature Temperature Source Pulse Rate 38 L 33 L 34 L Pulse Rate [Apical] Respiratory Rate 16 18 18 Blood Pressure 95/40 L 106/45 L 104/41 L Blood Pressure [Left Arm] Blood Pressure Mean 65 66 Blood Pressure Mean [Left Arm] Blood Pressure Source Automatic Cuff Blood Pressure Source [Left Arm] Blood Pressure Position Sitting Blood Pressure Position [Left Arm] 02 Sat by Pulse Oximetry 97 97 97 Oxygen Delivery Method Nasal Cannula Nasal Cannula Nasal Cannula Oxygen Flow Rate (LPM) 2 2 2 09/17/20 16:46 09/17/20 17:01 09/17/20 17:16 Temperature 16 F L 16 F L Temperature Source Pulse Rate 37 L 39 L 35 L Pulse Rate [Apical] Respiratory Rate 18 Blood Pressure 90/41 L 100/48 L 112/51 L Blood Pressure [Left Arm] Blood Pressure Mean 61 56 71 Blood Pressure Mean [Left Arm] Blood Pressure Source Blood Pressure Source [Left Arm] Blood Pressure Position Blood Pressure Position [Left Arm] 02 Sat by Pulse Oximetry 98 96 97 Oxygen Delivery Method Nasal Cannula Nasal Cannula Oxygen Flow Rate (LPM) 2 2 09/17/20 17:27 Temperature Temperature Source Pulse Rate 44 L Pulse Rate [Apical] Respiratory Rate 18 Blood Pressure 112/51 L Blood Pressure [Left Arm] Blood Pressure Mean Blood Pressure Mean [Left Arm] Blood Pressure Source Blood Pressure Source [Left Arm] Blood Pressure Position Sitting Blood Pressure Position [Left Arm] 02 Sat by Pulse Oximetry 98 Oxygen Delivery Method Nasal Cannula Oxygen Flow Rate (LPM) 2 - Lab Data Lab Results 09/17/20 15:30: WBC 10.4, RBC 3.84 L, Hgb 11.6 L, Hct 33.8 L, MCV 88.1, MCH 30.3, MCHC 34.4, RDW 15.4, Plt Count 268, MPV 7.6, Neut % (Auto) 72.8, Lymph % (Auto) 22.2, [place] % (Auto) 3.8, Eos % (Auto) 1.0, Baso % (Auto) 0.2, Neut # (Auto) 7.5, Lymph # (Auto) 2.3, [place] # (Auto) 0.4, Eos # (Auto) 0.1, Baso # (Auto) 0.0 09/17/20
--- NOTE | 2020-09-17 15:37 | PC.NURSE ---
gemma vitalen at BS
[2020-09-17 15:45] LABS: Basophils % 0.2 % (0.1-2.0); Eosinophils # 0.1 K/mm3 (0.0-0.4); Hematocrit 33.8 % (37.0-47.0); Hemoglobin 11.6 g/dL (12.2-16.2); Lymphocytes # 2.3 K/mm3 (0.7-4.5); Lymphocytes % 22.2 % (10-50); Mean Corpuscular HGB Conc 34.4 g/dL (31.8-35.4); Mean Corpuscular Hemoglobin 30.3 pg (27.0-31.2); Mean Corpuscular Volume 88.1 fl (81-99); Mean Platelet Volume 7.6 fl (7.4-10.4); Monocytes # 0.4 K/mm3 (0.1-1.0); Monocytes % 3.8 % (1.7-9.3); Neutrophils # 7.5 K/mm3 (1.8-7.8); Neutrophils % 72.8 % (37.0-80.0); Platelet Count 268 K/mm3 (142-424); Red Blood Count 3.84 M/mm3 (4.20-5.40); Red Cell Distribution Width 15.4 % (11.5-17.5); White Blood Count 10.4 K/mm3 (4.8-10.8)
--- NOTE | 2020-09-17 15:45 | HMH.CNCARD ---
History of Present Illness Consult date: 09/17/20 Requesting physician: Jessy Tucker Chief complaint: bradycardia History of present illness: This is a 65-year-old white female who presented to the emergency department after a syncopal episode that was witnessed by her family. The patient states that she was at a restaurant prior to her arrival at the emergency department when her eyes rolled into the back of her head and she slumped over and went limp according to her grandson. The patient states that she only remembers reading the menu and does not remember having the syncopal episode. The patient was only unconscious for a few minutes and her grandson states she woke up. Initially she refused coming to the hospital but when EMS arrived she was diaphoretic and her heart rate was low in the 40s and she agreed to come to the emergency department. In route the patient did start vomiting. She denies any chest pain or pressure. She denies any shortness of breath or edema. She denies any fever, chills, diarrhea, PND or orthopnea. She does take multiple antihypertensives including metoprolol, diltiazem, clonidine and hydralazine. He states that she felt fine but was a little bit unsteady when she first got to the restaurant but denied having any dizziness or lightheadedness. She states now she feels fine and is ready to go home. She denies any cardiac history. She does report having a hemorrhagic stroke back in 2007. [facility] History I have reviewed the patient's past medical history: Yes Medical History: Reports:: Chronic Obstructive Pulmonary Disease (COPD), Cerebrovascular Accident, Depression, Diabetes Mellitus Type 2, Hyperlipidemia, Hypertension *Have you ever received a pneumonia vaccine?: No *Have you received a flu vaccine this season?: No Other Surgeries: Yes: Appendectomy, Tubal Ligation - *Social History Smoking Status: Current every day smoker Tobacco Type: cigarettes # Packs/Day (cigarettes): 1 Alcohol Intake: never *Occupational Status:: disabled Housing: apartment Household Members: children *Travel in the last 8 weeks: None - Psychiatric History Pschychiatric History:: Reports:: Depression Family Hx:: Cancer, Diabetes, Heart Attack Meds Home Medications Medication Instructions Recorded Confirmed Type Enalapril Maleate 10 mg PO BID 03/03/18 09/17/20 History Fluoxetine HCl 20 mg PO DAILY 03/03/18 09/17/20 History Furosemide [Lasix 40mg tablet] 40 mg PO DAILY 03/03/18 09/17/20 History Metformin HCl [Metformin 1000mg 1,000 mg PO BID 03/03/18 09/17/20 History Tablets] Potassium Chloride [Klor-Con 10mEq 10 meq PO DAILY 03/03/18 09/17/20 History tab] Terazosin HCl 10 mg PO HS 03/03/18 09/17/20 History Trazodone HCl 50 mg PO HS 03/03/18 09/17/20 History dilTIAZem HCL [Diltiazem 90mg 12Hr 90 mg PO BID 03/03/18 09/17/20 History ER Cap] Ipratropium/Albuterol Sulfate 3 ml IH QID #120 ampul.neb 03/06/18 Rx [Duoneb 3mL neb] Hydralazine HCl 25 mg PO BID 09/17/20 09/17/20 History Metoprolol Tartrate [Lopressor 50 mg PO BID 09/17/20 09/17/20 History 50mg tablet] cloNIDine HCL [cloNIDine 0.2mg 0.2 mg PO BID 09/17/20 09/17/20 History Tablet] Allergies Allergy/AdvReac Type Severity Reaction Status Date / Time No Known Allergies Allergy Verified 03/03/18 15:29 Exam I & O for Last 24 hours: Intake & Output 09/14/20 09/15/20 09/16/20 09/17/20 23:59 23:59 23:59 23:59 Weight 246 lb Narrative: EKG is a junctional rhythm with a rate of 40. - Constitutional no acute distress, obese - *Routine HEENT Exam Head: Present: normocephalic, atraumatic Eye: Present: EOMI, PERRL ENT: Present: mucous membranes moist - *Routine Neck Exam Present: supple, full ROM, normal carotid upstroke. Absent: JVD, carotid bruit, lymphadenopathy - *Routine Respiratory Exam Present: CTA bilaterally - *Routine Cardiovascular Exam Present: Normal S1, Normal S2, bradycardia. Absent: murmur
[2020-09-17 15:46] LABS: Chloride 106 mmol/L (98-107); Potassium 4.9 mmoL/L (3.5-5.1); Sodium 141 mmol/L (136-145)
[2020-09-17 15:49] LABS: Blood Urea Nitrogen 22 mg/dl (7-17); Creatinine Clearance Estimated 76 mL/min (50-200); Estimated Glomerular Filt Rate 41 ml/min (>60); GFR (African American) 50 ML/MIN (>60)
--- NOTE | 2020-09-17 15:50 | PC.NURSE ---
rad at BS for portable xray
[2020-09-17 15:59] LABS: NT Pro Brain Natriuretic Pep. 484 pg/mL (0-125)
[2020-09-17 16:03] LABS: Troponin I 0.03 ng/ml (0.00-0.034)
[2020-09-17 16:22] LABS: Thyroid Stimulating Hormone 2.23 uIU/mL (0.465-4.68)
--- NOTE | 2020-09-17 16:27 | PC.NURSE ---
per janette in CV lab renal doppler can not be done until tomorrow morning, states pt must be NPO prior to test. Notified ER and RADHA Ye
--- NOTE | 2020-09-17 16:31 | PC.NURSE ---
notified ER MD of pt HR remaining at 33-37 range, ER MD gave verbal order Atropine 0.5 mg IV one time
--- NOTE | 2020-09-17 17:02 | PC.NURSE ---
MD aware of HR of 30s-40s, Does not want pt paced at this time. No new orders noted at this time
--- NOTE | 2020-09-17 17:04 | PC.NURSE ---
clasp machine operator paging Dr. Redding
--- NOTE | 2020-09-17 17:04 | PC.NURSE ---
JAZMIN MAHAN speaking with Dr. Redding
--- NOTE | 2020-09-17 17:15 | PC.NURSE ---
per ER Dopamine drip started at 2.5 mcg/kg/min will continue to monitor
--- NOTE | 2020-09-17 17:40 | PC.NURSE ---
report given to farrahrn
--- NOTE | 2020-09-17 18:13 | PC.NURSE ---
speaking with Dr. Slaughter
--- NOTE | 2020-09-17 18:16 | PC.NURSE ---
Notified House of admission
--- NOTE | 2020-09-17 18:28 | PC.NURSE ---
Waiting on covid results to go upstairs to room
[2020-09-17 19:36] LABS: Troponin I 0.03 ng/ml (0.00-0.034)
--- NOTE | 2020-09-17 19:36 | PC.NURSE ---
phone call to lab, 120 minutes left on COVID results
--- NOTE | 2020-09-17 19:55 | PC.NURSE ---
Pt is frustrated that she will be in the ER for almost another 2hr waiting on swab results. Called supervisor [employer] to let them know pt was complaining of the wait time. Stated she could be transferred upstairs when the room was ready.
--- NOTE | 2020-09-17 19:57 | PC.NURSE ---
Called report to Genia Shaikh RN
[2020-09-17 20:36] LABS: Anion Gap 17.9 mEq/L (5-15); Calcium 9.4 mg/dl (8.4-10.2); Carbon Dioxide 22 mmol/L (22.0-30.0); Glucose 156 mg/dl (74-100)
--- NOTE | 2020-09-17 20:55 | PC.NURSE ---
patient up to floor via stretcher.
[2020-09-17 21:52] LABS: Microscopic, Urine URINE MICROSCOPIC (MICROSCOPIC)
[2020-09-17 21:58] LABS: Appearance,Urine CLEAR (Clear); Bilirubin,Urine Negative (Negative); Blood, Urine Negative (Negative); Color,Urine YELLOW (Yellow); Glucose,Urine (UA) Negative (Negative); Ketones,Urine Negative (Negative); Leukocyte Esterase,Urine Negative (Negative); Nitrate,Urine Negative (Negative); PH,Urine 5.5 (5.0-8.5); Protein,Urine Negative (Negative); Specific Gravity, Urine 1.015 (1.005-1.030); Urobilinogen,Urine 0.2 EU/dl (0.2)
[2020-09-17 22:13] LABS: RBC,Urine Occasional #/hpf (0-3)
[2020-09-17 23:23] LABS: Troponin I 0.03 ng/ml (0.00-0.034)
[2020-09-18] VITALS (50 sets, daily range): BP systolic 144–233; BP diastolic 60–119; PULSE 60–108; RESP 16–21; TEMP 36.8–37.1; O2SAT 92–96; BMI 38.8; BMI 38.7
--- NOTE | 2020-09-18 03:28 | PC.NURSE ---
Pt is A/O x4. Lung sounds clear, abd soft, non tender. Room air. NPO diet after midnight. Patient is a stand by assist to the bathroom. Pt is able to make needs known to staff, and slept well all shift. VSS, call light within reach, no concerns at this time.
--- NOTE | 2020-09-18 03:29 | PC.NURSE ---
Dopamine gtt titrated down to from 2.5 to 1.5mcg/kg, HR sustaining between 65-70. BP 154/69. Dopa gtt turned off @ 0310, HR sustaining 65-70. BP 168/74.
--- NOTE | 2020-09-18 04:14 | PC.NURSE ---
Pt began having several bradycardia episodes, HR 40-48. BP remained 160s/80s. Dopa gtt restarted at 1 mcg/kg
[2020-09-18 05:40] LABS: Chloride 108 mmol/L (98-107)
[2020-09-18 05:41] LABS: Basophils % 0.2 % (0.1-2.0); Eosinophils # 0.1 K/mm3 (0.0-0.4); Eosinophils % 1.4 % (0.1-12.0); Hematocrit 32.5 % (37.0-47.0); Hemoglobin 11.1 g/dL (12.2-16.2); Lymphocytes # 2.2 K/mm3 (0.7-4.5); Lymphocytes % 23.6 % (10-50); Mean Corpuscular HGB Conc 34.1 g/dL (31.8-35.4); Mean Corpuscular Volume 88.1 fl (81-99); Mean Platelet Volume 7.4 fl (7.4-10.4); Monocytes # 0.5 K/mm3 (0.1-1.0); Neutrophils # 6.5 K/mm3 (1.8-7.8); Neutrophils % 69.9 % (37.0-80.0); Platelet Count 232 K/mm3 (142-424); Potassium 4.3 mmoL/L (3.5-5.1); Red Blood Count 3.68 M/mm3 (4.20-5.40); Red Cell Distribution Width 15.4 % (11.5-17.5); Sodium 140 mmol/L (136-145); White Blood Count 9.3 K/mm3 (4.8-10.8)
[2020-09-18 05:43] LABS: Alanine Aminotransferase 12 U/L (12-78); Anion Gap 11.3 mEq/L (5-15); Aspartate Amino Transferase 17 U/L (14-36); Blood Urea Nitrogen 20 mg/dl (7-17); Carbon Dioxide 25 mmol/L (22.0-30.0); Creatinine Clearance Estimated 82 mL/min (50-200); Estimated Glomerular Filt Rate 45 ml/min (>60); GFR (African American) 55 ML/MIN (>60)
[2020-09-18 05:44] LABS: Albumin Level 3.9 g/dl (3.5-5.0); Alkaline Phosphatase 94 U/L (38-126); Bilirubin,Direct 0.2 mg/dl (0.0-0.4); Bilirubin,Total 0.2 mg/dl (0.2-1.3); Calcium 8.7 mg/dl (8.4-10.2); Chol/HDL Ratio 4.2 (1-3.5); Cholesterol 97 mg/dl (140-200); Glucose 120 mg/dl (74-100); HDL Cholesterol 23 mg/dl (40-60); Total Protein,Serum 6.6 g/dl (6.3-8.2); Triglycerides 132 mg/dl (30-150); VLDL Cholesterol 26 mg/dL (0-40)
[2020-09-18 05:55] LABS: Direct LDL Cholesterol 43.05 mg/dL (100-129)
--- NOTE | 2020-09-18 07:30 | PC.NURSE ---
Dopamine gtt off at this time.
--- NOTE | 2020-09-18 07:37 | P.CONPHA_ITS ---
[facility] Pharmacy VTE Monitoring - Patient Demographics Admission date: 09/18/20 Report Date: 09/18/20 Time: 07:37 Allergies/Adverse Reactions: Patient Allergies No Known Allergies Allergy (Verified 03/03/18 15:29) Height: 1.7 m Weight: 112.236 kg Patient Problems: Current Active Problems Diabetes mellitus (Acute) Hypertension (Acute) History of intracerebral hemorrhage without residual deficit (Acute) Hyperlipidemia (Acute) Tobacco abuse disorder (Acute) Syncope (Acute) Bradycardia (Acute) Junctional rhythm (Acute) Symptomatic bradycardia (Acute) Drug toxicity (Acute) - VTE Risk Labs: VTE Related Lab Results Hgb 11.1 g/dL (12.2-16.2) L 09/18/20 05:18 Hct 32.5 % (37.0-47.0) L 09/18/20 05:18 Plt Count 232 K/mm3 (142-424) 09/18/20 05:18 BUN 20 mg/dl (7-17) H 09/18/20 05:18 Creatinine 1.20 mg/dl (0.52-1.04) H 09/18/20 05:18 Estimated Creat Clear 82 mL/min (50-200) 09/18/20 05:18 Clinical Trial Participant: No - Prophylaxis VTE Prophylaxis Ordered?: Yes Types of VTE Prophylaxis: TEDS Knee High
--- NOTE | 2020-09-18 08:00 | CA_ITS ---
APPROVED REPORT Throw Out Clerk: Beth Terry RVT Study Quality: Good Indications: malignant htn Risk Factors Hypertension Obesity Diabetes Renal Artery Doppler Origin (R) 156.8/ cm/sec Proximal (R) 129.8/ cm/sec Mid (R) 158.1/ cm/sec Distal (R) 149.1/ cm/sec Renal Aorta Ratio (R) 1.09 Segmental A. (R) 50.3/17.5 cm/sec RI: 0.65 Segmental A. Sup (R) 36.2/14.7 cm/sec Segmental A. Mid (R) 44.1/17.6 cm/sec Segmental A. Inf (R) 50.3/17.5 cm/sec Origin (L) 100.3/ cm/sec Proximal (L) 101.8/ cm/sec Mid (L) 155.5/ cm/sec Distal (L) 138.8/ cm/sec Renal Aorta Ratio (L) 1.07 Segmental A. (L) 57.8/14.1 cm/sec RI: 0.75 Segmental A. Sup (L) 52.7/15.4 cm/sec Segmental A. Mid (L) 51.4/16.7 cm/sec Segmental A. Inf (L) 57.8/14.1 cm/sec Renal Measurements Kidney Size (R) 12.6x8.1 cm Cortical Thickness (R) 1.4 cm Kidney Size (L) 12.4x9.3 cm Cortical Thickness (L) 1.5 cm Findings Study suggests no evidence of stenosis of the bilateral renal arteries. Conclusion Study suggests no evidence of stenosis of the bilateral renal arteries. Electronically signed by : Sudhakar Flood MD 09/18/2020 17:22:22
--- NOTE | 2020-09-18 08:06 | HMH.PHAINT ---
home medication list clarified using list from home pharmacy and pt interview.
--- NOTE | 2020-09-18 08:27 | HMH.HP ---
*Admission Date: 09/18/20 <Elizabet Brannon - 09/18/20 08:37> *Chief complaint: syncope <Elizabet Brannon 09/18/20 08:37> *History of present illness: Ms. Fang is a 65-year-old female with a history of stroke, hypertension, COPD, hyperlipidemia, and type 2 diabetes. She states she was eating with family in a restaurant yesterday and the next thing she remembers they were surrounding her and stated she had a syncopal episode that lasted for a few seconds. She states she remained in her chair the entire time and does not remember the episode. Her grandson stated her eyes rolled into the back of her head and she slumped over. Initially she had refused coming to the hospital, but when the ambulance arrived, her heart rate was in the low 40s, therefore she agreed to transport. She did have some vomiting in the back of the ambulance and again when she got to the emergency room. She denied any chest pain or shortness of breath. She denied any headache or dizziness. She is on multiple blood pressure medications including metoprolol, diltiazem, clonidine, and hydralazine. She was admitted and placed on telemetry. She had to be placed on a dopamine drip to elevate her heart rate. Her blood pressure became elevated and the drip was stopped during the night. Her heart rate decreased again. This morning, her BP was elevated and the drip was discontinued. Her heart rate is now stable and her blood pressure has improved. She states she feels much better this morning and has had no further syncopal episodes. <Elizabet Brannon 09/18/20 08:37> [facility] History I have reviewed the patient's past medical history: Yes <Elizabet Brannon 09/18/20 08:37> Medical History: Reports:: Chronic Obstructive Pulmonary Disease (COPD), Cerebrovascular Accident, Depression, Hyperlipidemia, Hypertension Denies:: Cancer, Diabetes Mellitus Type 2, MRSA <Elizabet Brannon 09/18/20 08:37> *Have you ever received a pneumonia vaccine?: Yes <Elizabet Brannon 09/18/20 08:37> *Have you received a flu vaccine this season?: Yes <Elizabet Brannon 09/18/20 08:37> Other Surgeries: Yes: Appendectomy, Tubal Ligation <French Brannona 09/18/20 08:37> Amputation: No <ClovisElizabet 09/18/20 08:37> - *Social History Last grade of school completed: 9th or 10th <French Brannona 09/18/20 08:37> Smoking Status: Former smoker <French Brannona 09/18/20 08:37> Tobacco Type: cigarettes <ClovisElizabet 09/18/20 08:37> # Packs/Day (cigarettes): 1 <ClovisElizabet 09/18/20 08:37> Alcohol Intake: never <French Brannona 09/18/20 08:37> *Occupational Status:: retired, disabled <French Brannona 09/18/20 08:37> Housing: apartment <ClovisElizabet 09/18/20 08:37> Household Members: children <Elizabet Brannon 09/18/20 08:37> *Travel in the last 8 weeks: None <Elizabet Brannon 09/18/20 08:37> - Psychiatric History Pschychiatric History:: Reports:: Depression <ClovisElizabet 09/18/20 08:37> Family Hx:: Cancer, Diabetes, Heart Attack <ClovisElizabet 09/18/20 08:37> Review of Systems - Constitutional Denies fatigue, Denies fever(s), Denies weakness <ClovisElizabet 09/18/20 08:37> - Eyes Denies blurry vision, Denies double vision [facility] 09/[facility] 08[facility]37> - ENT Denies nasal congestion, Denies sore throat <ClovisElizabet 09/18/20 08:37> - *Cardiovascular Denies chest pain, Denies shortness of breath <[facility] 09/18/20 08:37> - *Respiratory Denies cough, Denies shortness of breath <[facility] 09/18/20 08:37> - *Gastrointestinal Reports nausea, Reports vomiting, Denies abdominal pain, Denies loose stools <French Brannona 09/18/20 08:37> - *Genitourinary Denies difficulty urinating, Denies painful urination <Elizabet Brannon - 09/18/20 08:37> - *Musculoskeletal Denies joint pain <Elizabet Brannon - 09/18/20 08:37> - *Neurologic Reports unsteadiness, Reports fainting, Denies confusion, Denies dizziness, Denies headache(s), Denies dizziness <Ghulam
--- NOTE | 2020-09-18 10:41 | HMH.PNCARD ---
Subjective Date: 09/18/20 Time: 10:41 Principal diagnosis: symptomatic bradycardia Interval history: This is a 65-year-old white female who presented to the emergency department after a syncopal episode that was witnessed by her family. The patient had been at a restaurant looking at a menu when suddenly her eyes rolled in the back of her head and she slumped over and went limp according to her grandson. The patient does not remember this event happening and states that she thought she was just reading the menu. EMS arrived and the patient was found to be bradycardic with a heart rate in the 40s. Her EKG when she arrived here at [facility] showed a junctional rhythm with a heart rate of 40 bpm. She denied any chest pain or pressure. She denies any shortness of breath or edema. She denies any fever, chills, nausea, vomiting, diarrhea, PND or orthopnea. The patient was on multiple medications for hypertension that also lower her heart rate. These medications have been stopped. She was also given a dose of atropine yesterday and started on a dopamine drip for heart rate support. Her blood pressure became malignantly elevated overnight and the dopamine was stopped. Her heart rate is in the 70s off of the dopamine drip and stable. The patient reports that she feels really well today. Exam Vital signs and Labs for Last 24 Hours: Temp Pulse Resp BP Pulse Ox 98.3 F 75 19 222/109 H 93 L 09/18/20 08:00 09/18/20 09:30 09/18/20 08:00 09/18/20 09:30 09/18/20 08:00 Laboratory Results - last 24 hr 09/17/20 15:30: WBC 10.4, RBC 3.84 L, Hgb 11.6 L, Hct 33.8 L, MCV 88.1, MCH 30.3, MCHC 34.4, RDW 15.4, Plt Count 268, MPV 7.6, Neut % (Auto) 72.8, Lymph % (Auto) 22.2, [place] % (Auto) 3.8, Eos % (Auto) 1.0, Baso % (Auto) 0.2, Neut # (Auto) 7.5, Lymph # (Auto) 2.3, Gentry # (Auto) 0.4, Eos # (Auto) 0.1, Baso # (Auto) 0.0 09/17/20 15:30: Sodium 141, Potassium 4.9, Chloride 106, Carbon Dioxide 22, Anion Gap 17.9 H, BUN 22 H, Creatinine 1.30 H, Estimated Creat Clear 76, Estimated GFR 41 L, Est GFR ( Amer) 50 L, Glucose 156 H, Calcium 9.4, Troponin I 0.03, TSH 2.23 09/17/20 15:30: NT-Pro-B Natriuret Pep 484 H 09/17/20 18:49: Troponin I 0.03 09/17/20 21:45: Urine Color Yellow, Urine Appearance Clear, Urine pH 5.5, Ur Specific [place] 1.015, Urine Protein Negative, Urine Glucose (UA) Negative, Urine Ketones Negative, Urine Blood Negative, Urine Nitrate Negative, Urine Bilirubin Negative, Urine Urobilinogen 0.2, Ur Leukocyte Esterase Negative, Urine RBC Occasional, Urine WBC None, Ur Squamous Epith Cells 3-5, Urine Bacteria None 09/17/20 22:45: Troponin I 0.03 09/18/20 05:18: WBC 9.3, RBC 3.68 L, Hgb 11.1 L, Hct 32.5 L, MCV 88.1, MCH 30.0, MCHC 34.1, RDW 15.4, Plt Count 232, MPV 7.4, Neut % (Auto) 69.9, Lymph % (Auto) 23.6, Gentry % (Auto) 5.0, Eos % (Auto) 1.4, Baso % (Auto) 0.2, Neut # (Auto) 6.5, Lymph # (Auto) 2.2, Gentry # (Auto) 0.5, Eos # (Auto) 0.1, Baso # (Auto) 0.0 09/18/20 05:18: Sodium 140, Potassium 4.3, Chloride 108 H, Carbon Dioxide 25, Anion Gap 11.3, BUN 20 H, Creatinine 1.20 H, Estimated Creat Clear 82, Estimated GFR 45 L, Est GFR ( Amer) 55 L, Glucose 120 H D, Calcium 8.7, Total Bilirubin 0.2, Direct Bilirubin 0.2, Conjugated Bilirubin 0.0, Indirect Bilirubin 0.0, Unconjugated Bilirubin 0.0, AST 17, ALT 12, Alkaline Phosphatase 94, Total Protein 6.6, Albumin 3.9, Triglycerides 132, Cholesterol 97 L, LDL Cholesterol Direct 43.05 L, VLDL Cholesterol 26, HDL Cholesterol 23 L, Cholesterol/HDL Ratio 4.2 H I & O for Last 24 hours: Intake & Output 09/15/20 09/16/20 09/17/20 09/18/20 23:59 23:59 23:59 23:59 Intake Total 500 / 500 Balance 500 / 500 Weight 246 lb 247 lb 7 oz Microbiology Reports for the Last 24 Hours: Microbiology 09/17/20 16:19 Nasopharyngeal Coronavirus COVID-19 PCR - Final Narrative: Telemetry strip shows sinus rhythm with a rate of 74. Chest x-ray shows no acute finding. Ech
--- NOTE | 2020-09-18 14:30 | PC.NURSE ---
BP 204/98, HR 76, nipride drip initiated at this time at 0.3mg/kg/hr
--- NOTE | 2020-09-18 15:14 | PC.NURSE ---
BP- 183/98, HR 60, nipride drip titrated to 0.5mcg/kg at this time
--- NOTE | 2020-09-18 16:33 | PC.NURSE ---
BP- 187/99, HR 64, nipride titrated up to 1mcg/kg at this time
--- NOTE | 2020-09-18 16:45 | PC.NURSE ---
Patient has remained hypertensive this shift, started on nipride drip per MD order, has not been bradycardic this shift, HR 60-80, SR per telemetry, alert and oriented x4, lungs cta, on RA, peripheral pulses 2+, denies any cp or soa, voids per BR with standby assist, no s/s of distress noted, will continue to monitor.
--- NOTE | 2020-09-18 18:32 | PC.NURSE ---
BP 194/82, HR 78, Nipride drip titrated up to 2mcg/kg/min at this time
[2020-09-19] VITALS (40 sets, daily range): BP systolic 94–202; BP diastolic 47–113; PULSE 67–105; RESP 11–32; TEMP 36.6–37; O2SAT 90–100; BMI 39.2
--- NOTE | 2020-09-19 | PC.NURSE ---
titrated nitroprusside gtt to 3 mcg/min bp 180/80
--- NOTE | 2020-09-19 04:00 | PC.NURSE ---
nitroprusside gtt titrated to 1 mcg/min at this time
--- NOTE | 2020-09-19 06:13 | PC.NURSE ---
pt has slept intermittently. telemery shows NSR. 2LNC was applied while sleeping due to o2 sat decreasing to the low 80's. iv patent and infusing per order. pt became tachycardic and bp remained elevated. drip was increased and md was notified. coreg added and hr improved. bp has decreased and nitroprusside drip titrated accordingly. no complaints voiced by patient. call light in reach. ambulates with standby assist. will continue to monitor
--- NOTE | 2020-09-19 07:30 | PC.NURSE ---
BP 198/93 (128). Pt sitting on side of bed eating. Is asymptomatic. Nipride gtt increased to 2 mcg/kg/min (67mL/hr).
--- NOTE | 2020-09-19 08:00 | PC.NURSE ---
BP 165/95 (118). Nipride gtt increased to 3mcg/kg/min (102mL/hr).
--- NOTE | 2020-09-19 08:48 | HMH.ACPN2 ---
<Elizabet Brannon - Last Filed: 09/19/20 08:48> Internal Medicine - PN: Subj *Date: 09/19/20 *Time: 08:48 Interval history: Patient states she is fatigued today. She has not slept well since she has been here. She is eating normally. Her heart rate has improved but her blood pressure elevated and she had to be started on a nitro drip. Exam Vital signs and Labs for Last 24 Hours: Temp Pulse Resp BP Pulse Ox 98.4 F 78 28 H 165/95 H 96 09/19/20 08:00 09/19/20 08:00 09/19/20 08:00 09/19/20 08:00 09/19/20 08:00 I & O for Last 24 hours: Intake & Output 09/16/20 09/17/20 09/18/20 09/19/20 11:59 11:59 11:59 11:59 Intake Total 500 / 500 4063 / 4063 Balance 500 / 500 4063 / 4063 Weight 247 lb 7 oz 250 lb 5 oz - Constitutional no acute distress - *Routine HEENT Exam Head: Present: normocephalic Eye: Present: EOMI, PERRL ENT: Present: mucous membranes moist - *Routine Neck Exam Present: supple. Absent: lymphadenopathy - *Routine Respiratory Exam Present: CTA bilaterally - *Routine Cardiovascular Exam Present: RRR - *Routine Abdominal Exam Present: soft, normoactive bowel sounds. Absent: tenderness - *Routine Extremities Exam Absent: cyanosis, clubbing, edema - *Routine Skin Exam Present: warm. Absent: rash - *Routine Neurological Exam Present: alert, oriented X3 Assessment and Plan (1) Syncope Status: Acute Category: Medical Code(s): R55 - Syncope and collapse (2) Bradycardia Status: Resolved Category: Medical Code(s): R00.1 - Bradycardia, unspecified (3) Junctional rhythm Status: Resolved Category: Medical Code(s): I49.8 - Other specified cardiac arrhythmias (4) Diabetes mellitus Status: Acute Category: Medical Code(s): E11.9 - Type 2 diabetes mellitus without complications (5) History of intracerebral hemorrhage without residual deficit Status: Acute Category: Medical Code(s): Z86.79 - Personal history of other diseases of the circulatory system (6) Hyperlipidemia Status: Acute Category: Medical Code(s): E78.5 - Hyperlipidemia, unspecified (7) Hypertension Status: Acute Category: Medical Code(s): I10 - Essential (primary) hypertension (8) Tobacco abuse disorder Status: Acute Category: Medical Code(s): Z72.0 - Tobacco use - Assessment and plan all Dx Assessment and Plan for all problems:: Her renal artery duplex showed no evidence of stenosis of the bilateral renal arteries. Cardiology feels she is going through rebound hypertension from being off of her clonidine and metoprolol which is why they started the nipride drip to help improve her blood pressure. They feel she will likely be able to maintain normal blood pressure on Norvasc, enalapril, and hydrochlorothiazide once her blood pressure comes down to normal range. <Ricky Slaughter - Last Filed: 09/19/20 11:06> Internal Medicine - PN: Subj *Date: 09/19/20 *Time: 11:04 Exam Vital signs and Labs for Last 24 Hours: Temp Pulse Resp BP Pulse Ox 98.4 F 77 29 H 151/64 H 98 09/19/20 08:00 09/19/20 11:00 09/19/20 11:00 09/19/20 11:00 09/19/20 11:00 I & O for Last 24 hours: Intake & Output 09/16/20 09/17/20 09/18/20 09/19/20 11:59 11:59 11:59 11:59 Intake Total 500 / 500 4303 / 4303 Output Total 0 / 0 Balance 500 / 500 4303 / 4303 Weight 247 lb 7 oz 250 lb 5 oz Assessment and Plan (1) Syncope Status: Acute Category: Medical Code(s): R55 - Syncope and collapse (2) Bradycardia Status: Resolved Category: Medical Code(s): R00.1 - Bradycardia, unspecified (3) Junctional rhythm Status: Resolved Category: Medical Code(s): I49.8 - Other specified cardiac arrhythmias (4) Diabetes mellitus Status: Acute Category: Medical Code(s): E11.9 - Type 2 diabetes mellitus without complications (5) History of intracerebral hemorrhage without residual deficit Status: Acute Category:
--- NOTE | 2020-09-19 10:00 | PC.NURSE ---
BP 173/78. Nipride gtt increased to 4mcg/kg/min.
--- NOTE | 2020-09-19 10:30 | PC.NURSE ---
Pt ambulated to bathroom and vomited in sink. She also urinated in the floor. When she returned back to bed, her BP is 202/113 (142). Nipride gtt continues @ 4 mcg/kg/min. Rosalba Garces APRN is aware of BP issues.
--- NOTE | 2020-09-19 10:44 | PC.NURSE ---
Nipride gtt increased to 5mcg/kg/min per Rosalba Garces APRN. She will communicate issues with Dr. Redding
--- NOTE | 2020-09-19 11:09 | HMH.PNCARD ---
Subjective Date: 09/19/20 Time: 10:45 Principal diagnosis: symptomatic bradycardia Interval history: This is a 65 year old white female who was admitted to the hospital after a syncopal episode. pt was found to be bradycardic by EMS and transported to [facility]. Here her EKG showed a junctional rhythm with a rate of 40 bpm. she does not recall the episode but it was witnessed by family. Metoprolol and diltiazem were stopped. bradycardia has resolved. Pt's BP has been malignantly elevated. she was started on a nipride drip drip yesterday afternoon. BP remains elevated today. she has a pounding headache and just had an episode of vomiting with a BP of 205/100. she states she does not feel well. denies CP or pressure. denies SOA or edema. denies fever, chills, diarrhea, PND or orthopnea. Exam Vital signs and Labs for Last 24 Hours: Temp Pulse Resp BP Pulse Ox 98.4 F 77 29 H 151/64 H 98 09/19/20 08:00 09/19/20 11:00 09/19/20 11:00 09/19/20 11:00 09/19/20 11:00 I & O for Last 24 hours: Intake & Output 09/16/20 09/17/20 09/18/20 09/19/20 23:59 23:59 23:59 23:59 Intake Total 500 / 500 2406 / 2526 1897 / 1897 Output Total 0 / 0 Balance 500 / 500 2406 / 2526 1897 / 1897 Weight 246 lb 246 lb 14.684 oz 250 lb 5 oz Narrative: telemetry strip is SR with a rate of 64. renal duplex shows no evidence of DYLAN bilaterally. - Constitutional no acute distress, obese - *Routine HEENT Exam Head: Present: normocephalic, atraumatic Eye: Present: EOMI, PERRL ENT: Present: mucous membranes moist - *Routine Neck Exam Present: supple, full ROM, normal carotid upstroke. Absent: JVD, carotid bruit, lymphadenopathy - *Routine Respiratory Exam Present: CTA bilaterally - *Routine Cardiovascular Exam Present: RRR, Normal S1, Normal S2. Absent: murmur - *Routine Abdominal Exam Present: soft, normoactive bowel sounds. Absent: tenderness, distended - *Routine Extremities Exam Present: full ROM, pulses intact, normal capillary refill. Absent: cyanosis, clubbing, edema - *Routine Skin Exam Present: intact, warm. Absent: erythema, rash - *Routine Neurological Exam Present: alert, oriented X3, CN II-XII intact. Absent: sensory deficit, motor deficit - Routine Psychiatric Exam Present: normal affect, normal thought process Progress Note: A&P (1) Hypertension Status: Acute (2) Syncope Status: Acute (3) Bradycardia Status: Resolved (4) Junctional rhythm Status: Resolved (5) Diabetes mellitus Status: Acute (6) History of intracerebral hemorrhage without residual deficit Status: Acute (7) Hyperlipidemia Status: Acute (8) Tobacco abuse disorder Status: Acute Assessment and Plan for All Diagnoses:: Plan: 1. The patient presented to the ED after syncope. she was bradycardic in a junctional rhythm with a rate of 40 bpm. she was treated with IV glucagon, atropine and a dopamine drip. HR improved. she is in SR with a rate of 64 today. 2. Pt had a malignantly elevated BP yesterday and was started on a nipride drip for better BP control. BP remains malignantly elevated today at 205/100. she has a headache and vomiting this morning with the HTN. Increase Coreg to 25 mg BID for better BP control. norvasc 10 mg Bid. Lisinopril 40 mg bid and HCTZ 25 mg daily. 3. LDL goal i s< 100. LDL is 43. 4. denies CP or pressure. ruled out for AL. no plans for LHC at this time. 5. wean off of nipride drip. 6. Further recommendations were made pending the patient's response to treatment. Thank you for the opportunity to help participate in the care of this patient. All recommendations and orders per Dr. Redding.
--- NOTE | 2020-09-19 12:04 | PC.NURSE ---
NS @ 125mL/hr discontinued per Dr. Redding.
--- NOTE | 2020-09-19 12:15 | PC.NURSE ---
BP 108/55 (72). Nipride gtt decreased to 4mcg/kg/min
--- NOTE | 2020-09-19 13:15 | PC.NURSE ---
BP 94/53 (66). Nipride gtt decreased to 3 mcg/kg/min.
--- NOTE | 2020-09-19 13:30 | PC.NURSE ---
BP 101/52 (68). Nipride gtt decreased to 2mcg/kg/min
--- NOTE | 2020-09-19 14:30 | PC.NURSE ---
BP 109/55 (73). Nipride gtt decreased to 1mcg/kg/min
--- NOTE | 2020-09-19 15:45 | PC.NURSE ---
BP 193/101 (131). Pt sitting on side of bed. Nipride gtt increased to 2mcg/kg/min
[2020-09-20] VITALS (33 sets, daily range): BP systolic 111–189; BP diastolic 56–97; PULSE 65–100; RESP 12–27; TEMP 36.6–37.2; O2SAT 88–98; BMI 39.1
--- NOTE | 2020-09-20 01:23 | PC.NURSE ---
right iv site infiltrated with nipride infusion, , iv discontinues, area marked and pharmacy notified for further step if needed. suggested hot or cold compress and elevation. warm compress applied. area slightly pink and coordinator skill training program color.
--- NOTE | 2020-09-20 02:35 | PC.NURSE ---
2000 nipride drip increased to mcq/kg/min 2100 nipride drip increased to 4 mcq/kg/min 2200 nipride drip increased to 5 mcq/kg/min 2300 nipride drip increased to 6 mcq/kg/min 0030 nipride drip decreased to 4 mcq/kg/min 0230 nipride drip decreased to 2 mcq/kg/min patient resting with eyes closed at this time.
--- NOTE | 2020-09-20 05:32 | PC.NURSE ---
patient has had difficult night, nipride drip has needed to be titrated frequently up and down to reach goal pressures. patient currently at 3 mcq/kg/min with sys bp 133. patient monitor has shown sr in the 70s-90s. patient had two episodes of large amount of emesis, containing undigested food. treated with zofran. patient has denied any headache tonight. patient has remained pink in color. awake, alert and oriented. right arm remains slightly pink, no longer warm and no swelling or tenderness noted. patient is on 2l nc. patient would desat down and sustain 85%.
--- NOTE | 2020-09-20 08:49 | HMH.ACPN2 ---
<Elizabet Brannon - Last Filed: 09/20/20 08:49> Internal Medicine - PN: Subj *Date: 09/20/20 *Time: 08:49 Interval history: Patient is not feeling well today. She is still on the nipride drip. Her blood pressure continued to be elevated throughout the night. This morning she is extremely nauseated and has been vomiting. She states she was awake all night due to the nausea and vomiting. She denies any chest pain or shortness of breath. Her heart rate has been normal. Exam Vital signs and Labs for Last 24 Hours: Temp Pulse Resp BP Pulse Ox 98 F 85 12 149/72 H 97 09/20/20 04:00 09/20/20 06:00 09/20/20 06:00 09/20/20 06:00 09/20/20 06:00 I & O for Last 24 hours: Intake & Output 09/17/20 09/18/20 09/19/20 09/20/20 11:59 11:59 11:59 11:59 Intake Total 500 / 500 5054 / 5054 5652 / 5652 Output Total 0 / 0 Balance 500 / 500 5054 / 5054 5652 / 5652 Weight 247 lb 7 oz 250 lb 5 oz 249 lb 5 oz - Constitutional no acute distress - *Routine Respiratory Exam Present: CTA bilaterally - *Routine Cardiovascular Exam Present: RRR - *Routine Abdominal Exam Present: soft, normoactive bowel sounds. Absent: tenderness - *Routine Extremities Exam Absent: cyanosis, clubbing, edema - *Routine Skin Exam Present: warm. Absent: rash - *Routine Neurological Exam Present: alert, oriented X3 Assessment and Plan (1) Hypertension Status: Acute Category: Medical Code(s): I10 - Essential (primary) hypertension (2) Syncope Status: Acute Category: Medical Code(s): R55 - Syncope and collapse (3) Bradycardia Status: Resolved Category: Medical Code(s): R00.1 - Bradycardia, unspecified (4) Junctional rhythm Status: Resolved Category: Medical Code(s): I49.8 - Other specified cardiac arrhythmias (5) Diabetes mellitus Status: Acute Category: Medical Code(s): E11.9 - Type 2 diabetes mellitus without complications (6) History of intracerebral hemorrhage without residual deficit Status: Acute Category: Medical Code(s): Z86.79 - Personal history of other diseases of the circulatory system (7) Hyperlipidemia Status: Acute Category: Medical Code(s): E78.5 - Hyperlipidemia, unspecified (8) Tobacco abuse disorder Status: Acute Category: Medical Code(s): Z72.0 - Tobacco use (9) Nausea & vomiting Status: Acute Category: Medical Code(s): R11.2 - Nausea with vomiting, unspecified - Assessment and plan all Dx Assessment and Plan for all problems:: Nausea and vomiting likely due to the nipride drip. Cardiology is planning on making medication changes today. Will discuss further care with Dr. Slaughter. <Ricky Slaughter - Last Filed: 09/20/20 18:44> Internal Medicine - PN: Subj *Date: 09/20/20 *Time: 18:44 Exam Vital signs and Labs for Last 24 Hours: Temp Pulse Resp BP Pulse Ox 98.5 F 83 27 H 155/82 H 95 09/20/20 16:00 09/20/20 18:00 09/20/20 18:00 09/20/20 18:00 09/20/20 18:00 Laboratory Results - last 24 hr 09/20/20 09:37: WBC 9.3, RBC 3.51 L, Hgb 10.7 L, Hct 30.3 L, MCV 86.3, MCH 30.6, MCHC 35.4, RDW 15.4, Plt Count 264, MPV 7.7, Neut % (Auto) 71.9, Lymph % (Auto) 20.5, Iron % (Auto) 6.1, Eos % (Auto) 1.2, Baso % (Auto) 0.3, Neut # (Auto) 6.7, Lymph # (Auto) 1.9, Iron # (Auto) 0.6, Eos # (Auto) 0.1, Baso # (Auto) 0.0 09/20/20 09:37: Sodium 136, Potassium 4.0, Chloride 101, Carbon Dioxide 31 H D, Anion Gap 8.0, BUN 23 H, Creatinine 1.50 H D, Estimated Creat Clear 67, Estimated GFR 35 L, Est GFR ( Amer) 42 L D, Glucose 141 H, Calcium 8.2 L, Total Bilirubin 0.4, AST 18, ALT 11 L, Alkaline Phosphatase 76, Total Protein 6.1 L, Albumin 3.5, Globulin 2.6, Albumin/Globulin Ratio 1.3, Amylase 72, Lipase 501 H I & O for Last 24 hours: Intake & Output 09/18/20 09/19/20 09/20/20 09/21/20 11:59 11:59 11:59 11:59 Intake Total 500 / 500 5054 / 5054 5652 / 5652 960 / 960 Output Total 0 / 0 Balance 500 / 500
--- NOTE | 2020-09-20 09:18 | P.PN_ITS ---
Subjective Date: 09/20/20 Time: 09:18 Principal diagnosis: symptomatic bradycardia Interval history: 65-year-old white female in bed in no acute distress. She does relate intermittent vomiting after eating yesterday and overnight. Although to the nurses she relates that she has had vomiting regardless of food intake. I am informed that the nipride currently is about to run out and there is no additional nipride available in the hospital outside of the crash carts. Blood pressure is controlled in the 140s/70s mm Hg with heart rate in the 80s- 90s bpm. Exam Vital signs and Labs for Last 24 Hours: Temp Pulse Resp BP Pulse Ox 98.5 F 85 12 149/72 H 97 09/20/20 08:00 09/20/20 06:00 09/20/20 06:00 09/20/20 06:00 09/20/20 06:00 I & O for Last 24 hours: Intake & Output 09/17/20 09/18/20 09/19/20 09/20/20 11:59 11:59 11:59 11:59 Intake Total 500 / 500 5054 / 5054 5652 / 5652 Output Total 0 / 0 Balance 500 / 500 5054 / 5054 5652 / 5652 Weight 247 lb 7 oz 250 lb 5 oz 249 lb 5 oz - Constitutional no acute distress - *Routine HEENT Exam Head: Present: normocephalic Eye: Present: EOMI, PERRL ENT: Present: mucous membranes moist - *Routine Neck Exam Present: supple. Absent: lymphadenopathy - *Routine Respiratory Exam Present: CTA bilaterally - *Routine Cardiovascular Exam Present: RRR - *Routine Abdominal Exam Present: soft, normoactive bowel sounds. Absent: tenderness - *Routine Extremities Exam Absent: cyanosis, clubbing, edema - *Routine Skin Exam Present: warm. Absent: rash - *Routine Neurological Exam Present: alert, oriented X3 Progress Note: A&P (1) Hypertension Status: Acute (2) Syncope Status: Acute (3) Bradycardia Status: Resolved (4) Junctional rhythm Status: Resolved (5) Diabetes mellitus Status: Acute (6) History of intracerebral hemorrhage without residual deficit Status: Acute (7) Hyperlipidemia Status: Acute (8) Tobacco abuse disorder Status: Acute (9) Nausea & vomiting Status: Acute Assessment and Plan for All Diagnoses:: 1. Start minoxidil 20 mg daily and see how BP responds. Could increase to BID if needed and even increase coreg to 37.5 mg BID if HR allows. 2. Stop nipride when current bag is done. 3. Vomiting, possibly related to Nipride, will follow. Consider CT of head if persists. 4. Bradycardia/junctional rhythm, resolved.
--- NOTE | 2020-09-20 09:45 | PC.NURSE ---
BP 119/64 (82). Nipride gtt decreased to 2mcg/kg/min
[2020-09-20 09:49] LABS: Basophils % 0.3 % (0.1-2.0); Eosinophils # 0.1 K/mm3 (0.0-0.4); Eosinophils % 1.2 % (0.1-12.0); Hematocrit 30.3 % (37.0-47.0); Hemoglobin 10.7 g/dL (12.2-16.2); Lymphocytes # 1.9 K/mm3 (0.7-4.5); Lymphocytes % 20.5 % (10-50); Mean Corpuscular HGB Conc 35.4 g/dL (31.8-35.4); Mean Corpuscular Hemoglobin 30.6 pg (27.0-31.2); Mean Corpuscular Volume 86.3 fl (81-99); Mean Platelet Volume 7.7 fl (7.4-10.4); Monocytes # 0.6 K/mm3 (0.1-1.0); Monocytes % 6.1 % (1.7-9.3); Neutrophils # 6.7 K/mm3 (1.8-7.8); Neutrophils % 71.9 % (37.0-80.0); Platelet Count 264 K/mm3 (142-424); Red Blood Count 3.51 M/mm3 (4.20-5.40); Red Cell Distribution Width 15.4 % (11.5-17.5); White Blood Count 9.3 K/mm3 (4.8-10.8)
--- NOTE | 2020-09-20 09:51 | PC.NURSE ---
Minoxidil 20mg po given @ 09
[2020-09-20 09:52] LABS: Chloride 101 mmol/L (98-107); Sodium 136 mmol/L (136-145)
[2020-09-20 09:55] LABS: Alanine Aminotransferase 11 U/L (12-78); Albumin Level 3.5 g/dl (3.5-5.0); Albumin/Globulin Ratio 1.3 (1.1-1.8); Alkaline Phosphatase 76 U/L (38-126); Amylase 72 U/L (30-110); Aspartate Amino Transferase 18 U/L (14-36); Bilirubin,Total 0.4 mg/dl (0.2-1.3); Blood Urea Nitrogen 23 mg/dl (7-17); Calcium 8.2 mg/dl (8.4-10.2); Carbon Dioxide 31 mmol/L (22.0-30.0); Creatinine Clearance Estimated 67 mL/min (50-200); Estimated Glomerular Filt Rate 35 ml/min (>60); GFR (African American) 42 ML/MIN (>60); Globulin 2.6 g/dL (1.3-3.2); Glucose 141 mg/dl (74-100); Lipase 501 U/L (23-300); Total Protein,Serum 6.1 g/dl (6.3-8.2)
--- NOTE | 2020-09-20 10:30 | PC.NURSE ---
BP 119/61 (80). Nipride gtt decreased to 1mcg/kg/min
--- NOTE | 2020-09-20 11:45 | PC.NURSE ---
BP 139/89 (105). Nipride gtt turned OFF
--- NOTE | 2020-09-20 14:35 | DIET.NUTRFU ---
PO intakes 75%. She has had some emesis likely rt medication. Weight stable. BG ~140, POC not being taken. Pt has been provided with diet edu for DM and low sodium diet for HTN.
[2020-09-21] VITALS (15 sets, daily range): BP systolic 108–146; BP diastolic 50–78; PULSE 60–88; RESP 12–18; TEMP 36.6–36.9; O2SAT 89–95
--- NOTE | 2020-09-21 05:43 | PC.NURSE ---
patient has had uneventful night. no complaints of nausea, vomiting, diarhea or soa. no bradycardia noted this shift. few high blood pressures noted with activity. voiding per toilet.
--- NOTE | 2020-09-21 08:42 | HMH.ACPN2 ---
<Elizabet Brannon - Last Filed: 09/21/20 08:42> Internal Medicine - PN: Subj *Date: 09/21/20 *Time: 08:42 Interval history: Patient states she is feeling a little bit better this morning. She has had no further vomiting but she did get slightly nauseated after she tried to eat this morning. Her blood pressure has been much better, however her heart rate has been in the 50s and low 60s. She denies any pain and has been up to the bathroom this morning. She states she rested better last night. Exam Vital signs and Labs for Last 24 Hours: Temp Pulse Resp BP Pulse Ox 98.4 F 84 12 146/78 H 95 09/21/20 07:53 09/21/20 06:00 09/21/20 06:00 09/21/20 06:00 09/21/20 06:00 Laboratory Results - last 24 hr 09/20/20 09:37: WBC 9.3, RBC 3.51 L, Hgb 10.7 L, Hct 30.3 L, MCV 86.3, MCH 30.6, MCHC 35.4, RDW 15.4, Plt Count 264, MPV 7.7, Neut % (Auto) 71.9, Lymph % (Auto) 20.5, Emmons % (Auto) 6.1, Eos % (Auto) 1.2, Baso % (Auto) 0.3, Neut # (Auto) 6.7, Lymph # (Auto) 1.9, Emmons # (Auto) 0.6, Eos # (Auto) 0.1, Baso # (Auto) 0.0 09/20/20 09:37: Sodium 136, Potassium 4.0, Chloride 101, Carbon Dioxide 31 H D, Anion Gap 8.0, BUN 23 H, Creatinine 1.50 H D, Estimated Creat Clear 67, Estimated GFR 35 L, Est GFR ( Amer) 42 L D, Glucose 141 H, Calcium 8.2 L, Total Bilirubin 0.4, AST 18, ALT 11 L, Alkaline Phosphatase 76, Total Protein 6.1 L, Albumin 3.5, Globulin 2.6, Albumin/Globulin Ratio 1.3, Amylase 72, Lipase 501 H I & O for Last 24 hours: Intake & Output 09/18/20 09/19/20 09/20/20 09/21/20 11:59 11:59 11:59 11:59 Intake Total 500 / 500 5054 / 5054 5652 / 5652 1320 / 1320 Output Total 0 / 0 Balance 500 / 500 5054 / 5054 5652 / 5652 1320 / 1320 Weight 247 lb 7 oz 250 lb 5 oz 249 lb 5 oz - Constitutional no acute distress - *Routine Respiratory Exam Present: CTA bilaterally - *Routine Cardiovascular Exam Present: RRR - *Routine Abdominal Exam Present: soft, normoactive bowel sounds. Absent: tenderness - *Routine Extremities Exam Absent: cyanosis, clubbing, edema - *Routine Skin Exam Present: warm. Absent: rash - *Routine Neurological Exam Present: alert, oriented X3 Assessment and Plan (1) Hypertension Status: Acute Category: Medical Code(s): I10 - Essential (primary) hypertension (2) Syncope Status: Acute Category: Medical Code(s): R55 - Syncope and collapse (3) Bradycardia Status: Resolved Category: Medical Code(s): R00.1 - Bradycardia, unspecified (4) Junctional rhythm Status: Resolved Category: Medical Code(s): I49.8 - Other specified cardiac arrhythmias (5) Diabetes mellitus Status: Acute Category: Medical Code(s): E11.9 - Type 2 diabetes mellitus without complications (6) History of intracerebral hemorrhage without residual deficit Status: Acute Category: Medical Code(s): Z86.79 - Personal history of other diseases of the circulatory system (7) Hyperlipidemia Status: Acute Category: Medical Code(s): E78.5 - Hyperlipidemia, unspecified (8) Tobacco abuse disorder Status: Acute Category: Medical Code(s): Z72.0 - Tobacco use (9) Nausea & vomiting Status: Acute Category: Medical Code(s): R11.2 - Nausea with vomiting, unspecified - Assessment and plan all Dx Assessment and Plan for all problems:: May need to decrease carvedilol dose due to bradycardia. Will discuss with Dr. Slaughter. <Ricky Slaughter - Last Filed: 09/21/20 09:49> Internal Medicine - PN: Subj *Date: 09/21/20 *Time: 09:24 Exam Vital signs and Labs for Last 24 Hours: Temp Pulse Resp BP Pulse Ox 98.4 F 73 18 123/59 L 94 L 09/21/20 07:53 09/21/20 08:00 09/21/20 08:00 09/21/20 08:00 09/21/20 08:00 Laboratory Results - last 24 hr 09/20/20 09:37: WBC 9.3, RBC 3.51 L, Hgb 10.7 L, Hct 30.3 L, MCV 86.3, MCH 30.6, MCHC 35.4, RDW 15.4, Plt Count 264, MPV 7.7, Neut % (Auto) 71.9, Lymph % (Auto) 20.5, Emmons % (Auto) 6.1, Eos % (Auto) 1.
--- NOTE | 2020-09-21 17:27 | PC.NURSE ---
Currently on 1 L O2 per nasal cannula, sat mid 90's. Lungs diminished upon auscultation. HR regular, sinus. Rate ranging 60-80's Abdomen soft, non-tender w/ active BS in all quads. Pt did c/o nausea once this shift, treated w/ prn zofran w/ verbalized relief. Is independent w/ adl's. Ambulates w/ no safety concerns. Voiding w/o difficulty. Has had one BM this shift. Skin intact. Family have been @ bedsids. Call demetrio w/in reach. No needs voiced @ this time.
[2020-09-22] VITALS: BP 139/61; PULSE 67; PULSE 80; RESP 20; TEMP 36.9; O2SAT 98
[2020-09-22 04:00] VITALS: BP 105/44; PULSE 77; RESP 20; TEMP 36.8; O2SAT 92
[2020-09-22 05:00] VITALS: BMI 39.2
[2020-09-22 07:50] VITALS: BP 142/58; PULSE 80; RESP 21; TEMP 37.3; O2SAT 91
[2020-09-22 08:00] VITALS: PULSE 80; PULSE 81; RESP 21; O2SAT 91
--- NOTE | 2020-09-22 09:57 | HMH.ACPN2 ---
Internal Medicine - PN: Subj *Date: 09/22/20 *Time: 09:57 Interval history: She had a good day yesterday and rested well through the night. Blood pressure and heart rate have been stable on her current medical regimen. Exam Vital signs and Labs for Last 24 Hours: Temp Pulse Resp BP Pulse Ox 99.2 F 81 21 142/58 H 91 L 09/22/20 07:50 09/22/20 08:00 09/22/20 07:50 09/22/20 07:50 09/22/20 07:50 I & O for Last 24 hours: Intake & Output 09/19/20 09/20/20 09/21/20 09/22/20 11:59 11:59 11:59 11:59 Intake Total 5054 / 5054 5652 / 5652 1320 / 1320 1000 / 1000 Output Total 0 / 0 0 / 0 Balance 5054 / 5054 5652 / 5652 1320 / 1320 1000 / 1000 Weight 250 lb 5 oz 249 lb 5 oz 250 lb 3.594 oz Narrative: She is alert and oriented. Lungs are clear to auscultation. Heart is regular with no ectopy. Extremities show no edema. Assessment and Plan (1) Hypertension Status: Acute Category: Medical Code(s): I10 - Essential (primary) hypertension (2) Syncope Status: Acute Category: Medical Code(s): R55 - Syncope and collapse (3) Bradycardia Status: Resolved Category: Medical Code(s): R00.1 - Bradycardia, unspecified (4) Junctional rhythm Status: Resolved Category: Medical Code(s): I49.8 - Other specified cardiac arrhythmias (5) Diabetes mellitus Status: Acute Category: Medical Code(s): E11.9 - Type 2 diabetes mellitus without complications (6) History of intracerebral hemorrhage without residual deficit Status: Acute Category: Medical Code(s): Z86.79 - Personal history of other diseases of the circulatory system (7) Hyperlipidemia Status: Acute Category: Medical Code(s): E78.5 - Hyperlipidemia, unspecified (8) Tobacco abuse disorder Status: Acute Category: Medical Code(s): Z72.0 - Tobacco use (9) Nausea & vomiting Status: Acute Category: Medical Code(s): R11.2 - Nausea with vomiting, unspecified - Assessment and plan all Dx Assessment and Plan for all problems:: She is stable for discharge with current medications. She will follow-up in office for recheck in 1 week.
--- NOTE | 2020-09-23 22:42 | HMH.DCSUM ---
General - General Admission date:: 09/17/20 <Ricky Slaughter - 10/18/20 08:16> 09/17/20 <YeisonElizabet smart - 09/23/20 22:51> Discharge date: 09/22/20 <Elizabet Brannon - 09/23/20 22:51> HPI HPI: Ms. Fang is a 65-year-old female with a history of stroke, hypertension, COPD, hyperlipidemia, and type 2 diabetes. She states she was eating with family in a restaurant yesterday and the next thing she remembers they were surrounding her and stated she had a syncopal episode that lasted for a few seconds. She states she remained in her chair the entire time and does not remember the episode. Her grandson stated her eyes rolled into the back of her head and she slumped over. Initially she had refused coming to the hospital, but when the ambulance arrived, her heart rate was in the low 40s, therefore she agreed to transport. She did have some vomiting in the back of the ambulance and again when she got to the emergency room. She denied any chest pain or shortness of breath. She denied any headache or dizziness. She is on multiple blood pressure medications including metoprolol, diltiazem, clonidine, and hydralazine. She was admitted and placed on telemetry. She had to be placed on a dopamine drip to elevate her heart rate. Her blood pressure became elevated and the drip was stopped during the night. Her heart rate decreased again. This morning, her BP was elevated and the drip was discontinued. Her heart rate is now stable and her blood pressure has improved. She states she feels much better this morning and has had no further syncopal episodes. <Elizabet Brannon - 09/23/20 22:51> Hospital Course Hospital Course: The patient's chest x-ray showed nothing acute. Her labs were relatively unremarkable. She was mildly anemic and her renal function was slightly elevated. Her BNP was elevated at 44. She was seen in consultation by cardiology and an echo and renal artery duplex were ordered. The renal artery duplex showed no evidence of stenosis of the bilateral renal arteries. Cardiology stopped her metoprolol, diltiazem, hydralazine, and clonidine. She was started on Norvasc 10 mg daily in addition to her enalapril. Cardiology felt if she became hypertensive, she would need a nitroglycerin drip. Her blood pressure did elevate and her systolic was over 200, therefore she was started on a nitroglycerin drip. Cardiology felt she was going through rebound hypertension from being off of her clonidine and metoprolol. They felt she would likely be able to maintain a normal pressure on Norvasc, enalapril, and hydrochlorothiazide once her blood pressure came down to normal range. She was restarted on Coreg due to tachycardia. Her blood pressure continued to remain high and she developed a headache and had some vomiting. Her Coreg was increased to 25 mg twice daily for better blood pressure control, her Norvasc was increased to 10 mg twice daily, her lisinopril was increased to 40 mg twice daily, and she was continued on HCTZ 25 mg daily. By 09/20/2020, she was not feeling well. Her blood pressure continued to be elevated and she was extremely nauseated and has been vomiting. It was felt this may be due to the nitroglycerin drip. She was weaned off of the nitro drip as there was no additional nitroglycerin available at the hospital outside of the crash cart. Her blood pressure did improve and she was started on minoxidil 20 mg daily. By 09/21/2020, she was feeling better and had no further vomiting. She did get slightly nauseated after eating breakfast. Her blood pressure had improved but her heart rate was in the 50s and low 60s. Her carvedilol dose was decreased to 12.5 mg 3 times daily. By 09/22/2020. She was feeling much better and had rested well. Her blood pressure and heart rate were stable. It was felt she could be discharged home and will follow up in 1 week. <Elizabet Brannon - 09/23/20 22:51> Objective Vital sign
== END 2020-09-22 10:50 | disposition home or self-care (01) | DRG 312 ==
LOC: ER 18:27 → 2ND 19:34
PROVIDERS: Nurse Practitioner Family; Admitting Provider Family Medicine; Emergency Provider Emergency Medicine; PCP Family Medicine; Visit Provider Family Medicine
DX: R00.1 Bradycardia, unspecified (principal); I10 Essential (primary) hypertension; R55 Syncope and collapse; I49.8 Other specified cardiac arrhythmias; R00.0 Tachycardia, unspecified; E11.9 Type 2 diabetes mellitus without complications; E78.5 Hyperlipidemia, unspecified; J44.9 Chronic obstructive pulmonary disease, unspecified; F32.9 Major depressive disorder, single episode, unspecified; Z86.79 Personal history of other diseases of the circulatory system; F17.210 Nicotine dependence, cigarettes, uncomplicated; R11.2 Nausea with vomiting, unspecified; T46.3X5A Adverse effect of coronary vasodilators, initial encounter; D64.9 Anemia, unspecified; Z79.84 Long term (current) use of oral hypoglycemic drugs
CPT/HCPCS: 36415; 71045; 80048; 80053; 80061; 80076; 81001; 82150; 83690; 83880; 84443; 84484; 85025; 93005; 93306; 93976; 94761; 96365; 96367; 96375; 99284; J1610; J2405; U0003

== ENCOUNTER → 2021-09-05 09:03 | Outpatient (CLI) | payer MEDICARE, SELFPAY | PROVIDERS: PCP Family Medicine; Visit Provider Family Medicine | DX: Z20.822 Contact with and (suspected) exposure to COVID-19 (principal) | CPT/HCPCS: C9803; U0003; U0005 ==

== ENCOUNTER 2022-03-13 08:20 | Outpatient (CLI) | payer MEDICARE, SELFPAY ==
[2022-03-13] VITALS (20 sets, daily range): BP systolic 102–137; BP diastolic 41–65; PULSE 63–79; RESP 18; TEMP 36.3–36.6; O2SAT 90–91; BMI 34.8
[2022-03-13 08:56] LABS: Hematocrit 24.1 % (37.0-47.0); Hemoglobin 7.5 g/dL (12.2-16.2)
[2022-03-13 16:05] LABS: Hematocrit 28.9 % (37.0-47.0)
[2022-03-13 16:28] LABS: Hemoglobin 9.6 g/dL (12.2-16.2)
== END 2022-03-13 15:50 | disposition home or self-care (01) ==
LOC: INF 08:22
PROVIDERS: PCP Family Medicine; Visit Provider Family Medicine
DX: D64.9 Anemia, unspecified (principal)
CPT/HCPCS: 36415; 36430; 85014; 85018; 86850; P9016